=== PATIENT | female | born 1985 | race Caucasian/White ===

== ENCOUNTER → 2016-07-16 | Outpatient (CLI) | payer OTHER | END | disposition home or self-care (01) | LOC: LABWHC1 14:45 | PROVIDERS: ATTEND Obstetrics & Gynecology | DX: Z34.90 Encounter for supervision of normal pregnancy, unspecified, unspecified trimester (principal); Z3A.00 Weeks of gestation of pregnancy not specified | CPT/HCPCS: 36415; 84702 ==

== ENCOUNTER → 2016-07-30 | Outpatient (CLI) | payer OTHER ==
--- NOTE | 2016-07-30 22:24 | US ---
EXAMINATION TYPE: US pelvic complete DATE OF EXAM: 07/30/2016 3:41 PM COMPARISON: NONE CLINICAL HISTORY: 31-year-old female Pelvic Pain R10.2. LEFT adnexal pain, has IUD TECHNIQUE: Transabdominal (TA) Date of LMP: Patient unsure; pt has IUD with irregular cycles FINDINGS: Uterus: Anteverted measuring 8.7 x 4.0 x 5.4 cm Endometrial Stripe: 0.7 cm, within normal limits. An IUD is seen appropriately situated along the andrew rine cavity. Right Ovary: 3.7 x 2.4 x 2.6 cm with small follicular change. Left Ovary: 3.8 x 2.5 x 2.6 cm with small follicular change. No evident adnexal abnormality or cul-de-sac free fluid. IMPRESSION: IUD appears appropriately situated along the uterine cavity. Small follicles in both ovaries.
== END | disposition home or self-care (01) ==
LOC: RADUSWWP 14:38
PROVIDERS: ATTEND Obstetrics & Gynecology
DX: R10.2 Pelvic and perineal pain (principal); Z97.5 Presence of (intrauterine) contraceptive device
CPT/HCPCS: 76856

== ENCOUNTER 2016-10-11 13:36 | Emergency (ER) | payer OTHER ==
[2016-10-11 13:45] VITALS: BP 129/75; PULSE 108; RESP 20; TEMP 97.8
[2016-10-11] MEDS ORDERED: ONDANSETRON ODT 4 MG TAB PO STA (13:53)
--- NOTE | 2016-10-11 13:58 | ED ---
General Adult HPI - General Chief complaint: Recheck/Abnormal Lab/Rx Stated complaint: Drug Withdrawal Time Seen by Provider: 10/11/16 13:48 Source: patient, family, RN notes reviewed Mode of arrival: wheelchair Limitations: no limitations - History of Present Illness Initial comments: Patient is a pleasant 31-year-old female presenting with family with concerns for drug withdrawal. Patient has been on pain medications, Vicodin and Percocet for the past year or 2. Patient does have chronic back pain. Patient stopped taking medication yesterday and feels like she is withdrawing. Patient was cramping all over. Patient has nausea and vomiting, mostly dry heaves. No fevers. No history of similar problems previously. Patient does not want to be in pain medications anymore. - Related Data Previous Rx's Medication Instructions Recorded HYDROcodone/APAP 5-325MG [[place] 5] 1 each PO Q4HR PRN #30 tab 07/01/14 Ondansetron Odt [Zofran Odt] 4 mg PO Q6HR PRN #15 tab 10/11/16 cloNIDine HCL [Catapres] 0.1 mg PO BID #8 tab 10/11/16 Allergies Allergy/AdvReac Type Severity Reaction Status Date / Time adhesive Allergy Swelling Verified 10/11/16 13:44 codeine Allergy Rash/Hives Verified 10/11/16 13:44 Review of Systems ROS Statement: Those systems with pertinent positive or pertinent negative responses have been documented in the HPI. ROS Other: All systems not noted in ROS Statement are negative. Constitutional: Denies: fever Eyes: Denies: eye pain ENT: Denies: ear pain Respiratory: Denies: cough Cardiovascular: Denies: chest pain Endocrine: Reports: fatigue Gastrointestinal: Reports: abdominal pain, nausea, vomiting Genitourinary: Denies: dysuria Musculoskeletal: Reports: back pain (Chronic and unchanged) Skin: Denies: rash Neurological: Denies: confusion Past Medical History Past Medical History: Asthma Additional Past Medical History / Comment(s): endomitriosis, History of Any Multi-Drug Resistant Organisms: None Reported Past Surgical History: Hernia Repair, Orthopedic Surgery Additional Past Surgical History / Comment(s): right finger amputation, bilateral knee surgeries, 2 cervical LEEP procedures Past Anesthesia/Blood Transfusion Reactions: No Reported Reaction Past Psychological History: Anxiety Smoking Status: Current every day smoker Past Alcohol Use History: None Reported Past Drug Use History: Opiates - Past Family History Father Family Medical History: Coronary Artery Disease (CAD) General Exam Limitations: no limitations General appearance: alert, in no apparent distress Head exam: Present: atraumatic Eye exam: Present: normal appearance, PERRL ENT exam: Present: normal oropharynx Neck exam: Present: normal inspection Respiratory exam: Present: normal lung sounds bilaterally Cardiovascular Exam: Present: tachycardia GI/Abdominal exam: Present: soft. Absent: distended, tenderness Extremities exam: Present: normal inspection Neurological exam: Present: alert Psychiatric exam: Present: anxious Skin exam: Present: normal color Course Vital Signs 10/11/16 13:41 Temperature 97.8 F Pulse Rate 108 H Respiratory 20 Rate Blood Pressure 129/75 O2 Sat by Pulse 99 Oximetry Disposition Clinical Impression: Opiate withdrawal Disposition: HOME SELF-CARE Condition: Stable Instructions: Opioid Withdrawal (ED) Additional Instructions: Please follow-up with primary care physician in the next day or 2 for recheck. Please also follow-up with rehab, phone number list has been provided. Consider [facility]. Return for uncontrolled vomiting, fevers, worsening or changing symptoms or other concerns. Prescriptions: cloNIDine HCL [Catapres] 0.1 mg PO BID #8 tab Ondansetron Odt [Zofran Odt] 4 mg PO Q6HR PRN #15 tab PRN Reason: Nausea Referrals: Katie Joshua MD [STAFF PHYSICIAN] - 1-2 days Inge Larose MD [STAFF PHYSICIAN] - 1-2 days Time of Disposition: 13:58
== END 2016-10-11 14:10 | disposition home or self-care (01) ==
LOC: EC 13:36
DX: F11.23 Opioid dependence with withdrawal (principal); F17.200 Nicotine dependence, unspecified, uncomplicated; Z88.5 Allergy status to narcotic agent; Z91.048 Other nonmedicinal substance allergy status
CPT/HCPCS: 99283

== ENCOUNTER → 2017-06-29 | Outpatient (CLI) | payer OTHER ==
--- NOTE | 2017-06-29 13:51 | US ---
EXAMINATION TYPE: US pelvic complete DATE OF EXAM: 06/29/2017 COMPARISON: Pelvic ultrasound July 30, 2016. CLINICAL HISTORY: R10.2 pelvic Pain. TECHNIQUE: Transabdominal (TA). Date of LMP: 06/28/2017 EXAM MEASUREMENTS: Uterus: 7.7 x 4.3 x 4.9 cm Endometrial Stripe: 1.0 cm Right Ovary: 4.6 x 2.0 x 2.1 cm Left Ovary: 2.7 x 2.9 x 2.4 cm 1. Uterus: Anteverted wnl 2. Endometrium: wnl, IUD noted in place 3. Right Ovary: wnl 4. Left Ovary: wnl 5. Bilateral Adnexa: wnl 6. Posterior cul-de-sac: no free fluid Marked anteverted uterus is identified currently. Central shadowing linear hypoechoic structure consi stent with IUD is redemonstrated. Uterus is overall markedly heterogeneous. No free fluid is seen in pelvis. Both ovaries are identified and felt within normal limits. No suspicious adnexal lesions are seen. IMPRESSION: Unremarkable study. No significant change from prior.
--- NOTE | 2017-06-29 14:01 | USB ---
Reason for exam: clinical finding. History: Family history of breast cancer in maternal grandmother. Indicated problem(s): lump or thickening in the right breast. Physical Findings: Nurse Summary: 1-1.5cm thickening, movable (nurse dw). US Breast RT Right breast ultrasound includes all four quadrants, the retroareolar region and axilla. Finding demonstrates no cystic or solid lesion seen. These results were verbally communicated with the patient and result sheet given to the patient on 06/29/17. ASSESSMENT: Negative, BI-RAD 1 RECOMMENDATION: Clinical management of the right breast. Manage patient on a clinical basis.
== END | disposition home or self-care (01) ==
LOC: RADUSWWP 13:04
PROVIDERS: ATTEND Obstetrics & Gynecology
DX: R10.2 Pelvic and perineal pain (principal); N60.01 Solitary cyst of right breast
CPT/HCPCS: 76856

== ENCOUNTER 2017-09-08 16:38 | Emergency (ER) | payer BC, OTHER ==
[2017-09-08 16:52] VITALS: RESP 18; TEMP 98.6
[2017-09-08] MEDS ORDERED: SODIUM CHLORIDE 0.9% 1,000 ML IV STA (17:32)
--- NOTE | 2017-09-08 17:45 | ED ---
General Adult HPI - General Chief complaint: Abdominal Pain Stated complaint: ABDOMINAL AND KIDNEY PAIN, FEVER Time Seen by Provider: 09/08/17 17:15 Source: patient, RN notes reviewed Mode of arrival: ambulatory Limitations: no limitations - History of Present Illness Initial comments: Patient is a 32-year-old female significant past medical history for endometriosis, presenting to the emergency room today with a chief complaint of abdominal pain over the last 3 days. Patient states that pain is different than her typical endometriosis. Located middle of the abdomen. States cramping. She does admit that she went to urgent care and was sent here to the emergency room because of these symptoms. She states she's had some fever also had some congestion. She states her main worry was about her abdominal pain. Patient does admit that she had diarrhea the last 2 days. No signs of blood. No other complaints at this time. Patient denies any recent fever, chills, shortness of breath, chest pain, numbness or tingling, dysuria or hematuria, constipation, headaches or visual changes, or any other complaints. - Related Data Home Medications Medication Instructions Recorded Confirmed Acyclovir [Zovirax] 400 mg PO BID 09/08/17 09/08/17 Previous Rx's Medication Instructions Recorded Ondansetron Odt [Zofran ODT] 4 mg PO Q8HR PRN #20 tab 09/08/17 Allergies Allergy/AdvReac Type Severity Reaction Status Date / Time adhesive Allergy Swelling Verified 09/08/17 17:18 codeine Allergy Rash/Hives Verified 09/08/17 17:18 Review of Systems ROS Statement: Those systems with pertinent positive or pertinent negative responses have been documented in the HPI. ROS Other: All systems not noted in ROS Statement are negative. Past Medical History Past Medical History: Asthma Additional Past Medical History / Comment(s): endomitriosis, History of Any Multi-Drug Resistant Organisms: None Reported Past Surgical History: Hernia Repair, Orthopedic Surgery Additional Past Surgical History / Comment(s): right finger amputation, bilateral knee surgeries, 2 cervical LEEP procedures Past Anesthesia/Blood Transfusion Reactions: No Reported Reaction Past Psychological History: Anxiety Smoking Status: Current every day smoker Past Alcohol Use History: None Reported Past Drug Use History: None Reported - Past Family History Father Family Medical History: Coronary Artery Disease (CAD) General Exam - General Exam Comments Initial Comments: General: The patient is awake and alert, in no distress, and does not appear acutely ill. Eye: Pupils are equal, round and reactive to light, extra-ocular movements are intact. No nystagmus. There is normal conjunctiva bilaterally. No signs of icterus. Ears, nose, mouth and throat: There are moist mucous membranes and no oral lesions. Neck: The neck is supple, there is no tenderness or JVD. Cardiovascular: There is a regular rate and rhythm. No murmur, rub or gallop is appreciated. Respiratory: Lungs are clear to auscultation, respirations are non-labored, breath sounds are equal. No wheezes, stridor, rales, or rhonchi. Gastrointestinal: Abdomen soft on palpation. Mild tenderness suprapubic over the bladder. Mild left-sided CVA tenderness. No rebound, or guarding. Musculoskeletal: Normal ROM, no tenderness. Strength 5/5. Sensation intact. Pulses equal bilaterally 2+. Neurological: A&O x 3. CN II-XII intact, There are no obvious motor or sensory deficits. Coordination appears grossly intact. Speech is normal. Skin: Skin is warm and dry and no rashes or lesions are noted. Psychiatric: Cooperative, appropriate mood & affect, normal judgment. Limitations: no limitations Course Vital Signs 09/08/17 16:49 Temperature 98.6 F Pulse Rate 77 Respiratory 18 Rate Blood Pressure 127/78 O2 Sat by Pulse 99 Oximetry Medical Decision Making - Medical Decision Making Patient reexamined at this time shows no signs of distress. Her labs been reviewed. Vitals are stable. No fever here in emergency room. No elevated white count. Patient resting comfortably in soft nontender. Physical discharged home to follow-up family doctor the next 2 days. Patient nausea medication for symptoms. Advised return symptoms increase worsen or for concerns. states Understanding and is in - Lab Data Result diagrams: 09/08/17 17:56 09/08/17 17:56 Lab Results 09/08/17 09/08/17 09/08/17 Range/Units 17:56 17:56 17:56 WBC 9.2 (3.8-10.6) k/uL RBC 4.36 (3.80-5.40) m/uL Hgb 14.3 (11.4-16.0) gm/dL Hct 42.8 (34.0-46.0) % MCV 98.3 (80.0-100.0) fL MCH 32.7 (25.0-35.0) pg MCHC 33.3 (31.0-37.0) g/dL RDW 13.0 (11.5-15.5) % Plt Count 244 (150-450) k/uL Neutrophils % 66 % Lymphocytes % 26 % Monocytes % 5 % Eosinophils % 1 % Basophils % 1 % Neutrophils # 6.1 (1.3-7.7) k/uL Lymphocytes # 2.4 (1.0-4.8) k/uL Monocytes # 0.4 (0-1.0) k/uL Eosinophils # 0.1 (0-0.7) k/uL Basophils # 0.0 (0-0.2) k/uL Sodium 141 (137-145) mmol/L Potassium 3.9 (3.5-5.1) mmol/L Chloride 107 (98-107) mmol/L Carbon Dioxide 21 L (22-30) mmol/L Anion Gap 13 mmol/L BUN 10 (7-17) mg/dL Creatinine 0.70 (0.52-1.04) mg/dL Est GFR (CKD-EPI)AfAm >90 (>60 ml/min/1.73 sqM) Est GFR (CKD-EPI)NonAf >90 (>60 ml/min/1.73 sqM) Glucose 91 (74-99) mg/dL Calcium 9.6 (8.4-10.2) mg/dL Total Bilirubin 0.3 (0.2-1.3) mg/dL AST 21 (14-36) U/L ALT 29 (9-52) U/L Alkaline Phosphatase 62 (38-126) U/L Total Protein 7.2 (6.3-8.2) g/dL Albumin 4.7 (3.5-5.0) g/dL Amylase 91 (30-110) U/L Lipase 162 (23-300) U/L Urine Color Urine Appearance (Clear) Urine pH (5.0-8.0) Ur Specific [place] (1.001-1.035) Urine Protein (Negative) Urine Glucose (UA) (Negative) Urine Ketones (Negative) Urine Blood (Negative) Urine Nitrite (Negative) Urine Bilirubin (Negative) Urine Urobilinogen (<2.0) mg/dL Ur Leukocyte Esterase (Negative) Urine RBC (0-5) /hpf Urine WBC (0-5) /hpf Ur Squamous Epith Cells (0-4) /hpf Urine Mucus (None) /hpf Urine HCG, Qual Not Detected (Not Detectd) 09/08/17 Range/Units 17:56 WBC (3.8-10.6) k/uL RBC (3.80-5.40) m/uL Hgb (11.4-16.0) gm/dL Hct (34.0-46.0) % MCV (80.0-100.0) fL MCH (25.0-35.0) pg MCHC (31.0-37.0) g/dL RDW (11.5-15.5) % Plt Count (150-450) k/uL Neutrophils % % Lymphocytes % % Monocytes % % Eosinophils % % Basophils % % Neutrophils # (1.3-7.7) k/uL Lymphocytes # (1.0-4.8) k/uL Monocytes # (0-1.0) k/uL Eosinophils # (0-0.7) k/uL Basophils # (0-0.2) k/uL Sodium (137-145) mmol/L Potassium (3.5-5.1) mmol/L Chloride (98-107) mmol/L Carbon Dioxide (22-30) mmol/L Anion Gap mmol/L BUN (7-17) mg/dL Creatinine (0.52-1.04) mg/dL Est GFR (CKD-EPI)AfAm (>60 ml/min/1.73 sqM) Est GFR (CKD-EPI)NonAf (>60 ml/min/1.73 sqM) Glucose (74-99) mg/dL Calcium (8.4-10.2) mg/dL Total Bilirubin (0.2-1.3) mg/dL AST (14-36) U/L ALT (9-52) U/L Alkaline Phosphatase (38-126) U/L Total Protein (6.3-8.2) g/dL Albumin (3.5-5.0) g/dL Amylase (30-110) U/L Lipase (23-300) U/L Urine Color Yellow Urine Appearance Clear (Clear) Urine pH 6.5 (5.0-8.0) Ur Specific [place] 1.019 (1.001-1.035) Urine Protein Negative (Negative) Urine Glucose (UA) Negative (Negative) Urine Ketones Negative (Negative) Urine Blood Small H (Negative) Urine Nitrite Negative (Negative) Urine Bilirubin Negative (Negative) Urine Urobilinogen <2.0 (<2.0) mg/dL Ur Leukocyte Esterase Negative (Negative) Urine RBC 9 H (0-5) /hpf Urine WBC 1 (0-5) /hpf Ur Squamous Epith Cells 1 (0-4) /hpf Urine Mucus Rare H (None) /hpf Urine HCG, Qual (Not Detectd) Disposition Clinical Impression: Abdominal pain Disposition: HOME SELF-CARE Condition: Good Instructions: Abdominal Pain (ED) Additional Instructions: Please use medication as discussed. Please follow-up with family doctor in the next 2 days of symptoms have not improved. Please return to emergency room if the symptoms increase or worsen or for any other concerns. Prescriptions: Ondansetron Odt [Zofran ODT] 4 mg PO Q8HR PRN #20 tab PRN Reason: Nausea Is patient prescribed a controlled substance at d/c from ED?: No Referrals: None,Stated [Primary Care Provider] - 1-2 days Inge Laorse MD [STAFF PHYSICIAN] - 1-2 days Time of Disposition: 18:57
[2017-09-08 18:09] LABS: Basophils % (A) 1 %; Eosinophils # (A) 0.1 k/uL (0-0.7); Eosinophils % (A) 1 %; HCT 42.8 % (34.0-46.0); HGB 14.3 gm/dL (11.4-16.0); Lymphocytes # (A) 2.4 k/uL (1.0-4.8); Lymphocytes % (A) 26 %; MCH 32.7 pg (25.0-35.0); MCHC 33.3 g/dL (31.0-37.0); MCV 98.3 fL (80.0-100.0); Mean Platelet Volume 6.6; Monocytes # (A) 0.4 k/uL (0-1.0); Monocytes % (A) 5 %; Neutrophils # (A) 6.1 k/uL (1.3-7.7); Neutrophils % (A) 66 %; Platelet Count 244 k/uL (150-450); RBC 4.36 m/uL (3.80-5.40); WBC 9.2 k/uL (3.8-10.6)
[2017-09-08 18:12] LABS: Appearance,Urine Clear (Clear); Bilirubin,Urine Negative (Negative); Blood,Urine Small (Negative); Color,Urine Yellow; Glucose,Urine (UA) Negative (Negative); Ketones,Urine Negative (Negative); Leukocyte Esterase,Urine Negative (Negative); Mucus,Urine Rare /hpf; Nitrite,Urine Negative (Negative); PH, Urine 6.5 (5.0-8.0); Protein,Urine Negative (Negative); RBC,Urine 9 /hpf (0-5); Specific Gravity,Urine 1.019 (1.001-1.035); Squamous Epithelial Cell,Urine 1 /hpf (0-4); Urobilinogen,Urine <2.0 mg/dL (<2.0); WBC,Urine 1 /hpf (0-5)
[2017-09-08 18:19] LABS: ALT 29 U/L (9-52); AST 21 U/L (14-36); Albumin 4.7 g/dL (3.5-5.0); Alkaline Phosphatase 62 U/L (38-126); Amylase 91 U/L (30-110); Anion Gap 13 mmol/L; Blood Urea Nitrogen 10 mg/dL (7-17); Calcium 9.6 mg/dL (8.4-10.2); Carbon Dioxide 21 mmol/L (22-30); Chloride 107 mmol/L (98-107); Glucose 91 mg/dL (74-99); Lipase 162 U/L (23-300); Potassium 3.9 mmol/L (3.5-5.1); Sodium 141 mmol/L (137-145); Total Bilirubin 0.3 mg/dL (0.2-1.3); Total Protein 7.2 g/dL (6.3-8.2)
[2017-09-08 19:26] VITALS: BP 137/91; PULSE 72
--- NOTE | 2017-09-09 09:29 | XR ---
Abdomen HISTORY: Pain Frontal view of the abdomen on 2 images correlated to prior examination dated 10/03/2009 Lung bases are clear. There is no evident bowel obstruction or pneumoperitoneum. Bone mineralization is normal. Intrauterine contraceptive device is present within the pelvis. IMPRESSION: Foreign body. No evident bowel obstruction.
== END 2017-09-08 19:27 | disposition home or self-care (01) ==
LOC: EC 16:38
DX: R10.9 Unspecified abdominal pain (principal); R50.9 Fever, unspecified; R09.89 Other specified symptoms and signs involving the circulatory and respiratory systems; F17.200 Nicotine dependence, unspecified, uncomplicated; Z88.5 Allergy status to narcotic agent; Z91.09 Other allergy status, other than to drugs and biological substances; Z79.899 Other long term (current) drug therapy
CPT/HCPCS: 36415; 74018; 80053; 81001; 81025; 82150; 83690; 85025; 87077; 87086; 87186; 96360; 99284

== ENCOUNTER 2017-11-13 17:04 | Emergency (ER) | payer BC, OTHER ==
[2017-11-13] MEDS ORDERED: KETOROLAC 30 MG/ML 1 ML VIAL IVP STA (17:31)
[2017-11-13] MEDS ORDERED: SODIUM CHLORIDE 0.9% 1,000 ML IV STA (17:31)
--- NOTE | 2017-11-13 17:37 | ED ---
Abdominal Pain HPI - General Chief Complaint: Abdominal Pain Stated Complaint: ABDOMINAL PAIN Time Seen by Provider: 11/13/17 17:20 Source: patient Mode of arrival: ambulatory Limitations: no limitations - History of Present Illness Initial Comments: 32-year-old female patient with past medical history significant for endometriosis, fibromyalgia, and scoliosis presents to the emergency department today for complaints of vaginal bleeding, abdominal pain, and increased low back pain. Patient states she had her Mirena IUD removed approximately 4 weeks ago and states that she has been having bleeding since. Patient states it started as a normal period, then progressed into heavier vaginal bleeding. Patient states that she did soak through a pad in an hour just prior to arrival. States she has had some small clots. Patient states that today she has been feeling fatigued, lightheaded, and weak. Patient states that she does have an appointment with an LOAN SUPERVISOR and Marko Casarez on December 15 for her endometriosis. She usually follows with Dr. Campa. Patient denies any dysuria , urinary frequency, urinary urgency. She reports subjective fevers but has not taken her temperature. Patient states there is a chance she could be . Patient denies any recent rash, shortness breath, chest pain, numbness , tingling, dizziness, weakness, hematuria, dysuria, urinary urgency, urinary frequency, or any other complaints. - Related Data Home Medications Medication Instructions Recorded Confirmed Acyclovir [Zovirax] 400 mg PO BID 09/08/17 09/08/17 Previous Rx's Medication Instructions Recorded Ondansetron Odt [Zofran ODT] 4 mg PO Q8HR PRN #20 tab 09/08/17 Allergies Allergy/AdvReac Type Severity Reaction Status Date / Time adhesive Allergy Swelling Verified 09/08/17 17:18 codeine Allergy Rash/Hives Verified 09/08/17 17:18 Review of Systems ROS Statement: Those systems with pertinent positive or pertinent negative responses have been documented in the HPI. ROS Other: All systems not noted in ROS Statement are negative. Past Medical History Past Medical History: Asthma Additional Past Medical History / Comment(s): endomitriosis, History of Any Multi-Drug Resistant Organisms: None Reported Past Surgical History: Hernia Repair, Orthopedic Surgery Additional Past Surgical History / Comment(s): right finger amputation, bilateral knee surgeries, 2 cervical LEEP procedures Past Anesthesia/Blood Transfusion Reactions: No Reported Reaction Past Psychological History: Anxiety Smoking Status: Current every day smoker Past Alcohol Use History: None Reported Past Drug Use History: None Reported - Past Family History Father Family Medical History: Coronary Artery Disease (CAD) General Exam Limitations: no limitations General appearance: alert, in no apparent distress, other (This is a well- developed, well-nourished adult female patient in no acute distress. Vital signs upon presentation are temperature 99.1F, pulse 101, respirations 20, blood pressure 132/94, pulse ox 99% on room air.) Eye exam: Present: normal appearance, PERRL, EOMI. Absent: scleral icterus, conjunctival injection, periorbital swelling ENT exam: Present: normal exam, normal oropharynx, mucous membranes moist Respiratory exam: Present: normal lung sounds bilaterally. Absent: respiratory distress, wheezes, rales, rhonchi, stridor Cardiovascular Exam: Present: regular rate, normal rhythm, normal heart sounds. Absent: systolic murmur, diastolic murmur, rubs, gallop, clicks GI/Abdominal exam: Present: soft, tenderness (Generalized), normal bowel sounds. Absent: distended, guarding, rebound, rigid Back exam: Present: normal inspection, CVA tenderness (R), CVA tenderness (L) Neurological exam: Present: alert, oriented X3, CN II-XII intact Psychiatric exam: Present: normal affect, normal mood Skin exam: Present: warm, dry, intact, normal color. Absent: rash Course Vital Signs 11/13/17 11/13/17 17:17 20:45 Temperature 99.1 F 97 F L Pulse Rate 101 H 78 Respiratory 20 18 Rate Blood Pressure 132/94 132/71 O2 Sat by Pulse 99 98 Oximetry Medical Decision Making - Medical Decision Making 32-year-old female patient presented to the emergency department today for evaluation of abdominal pain and vaginal bleeding. Patient with vaginal bleeding have been going on for the last month. States is getting heavier. Patient is also complaining of generalized abdominal pain and tenderness. Patient states that the pain started prior to having her IUD removed. Labs reviewed and are unremarkable. Transvaginal ultrasound was obtained and showed no evidence of ovarian torsion and no other abnormalities. I did discuss findings and results with the patient, states that the pain is only getting worse and not getting any better she is requesting computed tomography scan of the abdomen and pelvis. I did advise against this informing her that her labs were unremarkable and the ultrasound showed no abnormalities. Patient became quite upset stating that her pain is only getting worse and she was very concerned, we did perform the CT of the abdomen and pelvis which showed a possible involuting ovarian cyst on the left side but no other abnormalities to account for the patient's pain. I did inform patient of these results. She will be discharged home to follow up with GI specialist for possible upper and lower GI endoscopy. She is instructed to follow-up with her LOAN SUPERVISOR as she has planned and to call for a sooner appointment. Return parameters were discussed in detail. She verbalizes understanding and agrees with this plan. - Lab Data Result diagrams: 11/13/17 17:41 11/13/17 17:41 Lab Results 11/13/17 11/13/17 11/13/17 Range/Units 17:41 17:41 17:41 WBC 9.5 (3.8-10.6) k/uL RBC 4.38 (3.80-5.40) m/uL Hgb 14.1 (11.4-16.0) gm/dL Hct 42.3 (34.0-46.0) % MCV 96.5 (80.0-100.0) fL MCH 32.2 (25.0-35.0) pg MCHC 33.3 (31.0-37.0) g/dL RDW 12.4 (11.5-15.5) % Plt Count 270 (150-450) k/uL Neutrophils % 54 % Lymphocytes % 38 % Monocytes % 5 % Eosinophils % 2 % Basophils % 1 % Neutrophils # 5.1 (1.3-7.7) k/uL Lymphocytes # 3.6 (1.0-4.8) k/uL Monocytes # 0.4 (0-1.0) k/uL Eosinophils # 0.1 (0-0.7) k/uL Basophils # 0.1 (0-0.2) k/uL Sodium 140 (137-145) mmol/L Potassium 3.5 (3.5-5.1) mmol/L Chloride 107 (98-107) mmol/L Carbon Dioxide 20 L (22-30) mmol/L Anion Gap 13 mmol/L BUN 10 (7-17) mg/dL Creatinine 0.76 (0.52-1.04) mg/dL Est GFR (CKD-EPI)AfAm >90 (>60 ml/min/1.73 sqM) Est GFR (CKD-EPI)NonAf >90 (>60 ml/min/1.73 sqM) Glucose 101 H (74-99) mg/dL Calcium 9.5 (8.4-10.2) mg/dL Total Bilirubin 0.6 (0.2-1.3) mg/dL AST 20 (14-36) U/L ALT 20 (9-52) U/L Alkaline Phosphatase 56 (38-126) U/L Total Protein 7.4 (6.3-8.2) g/dL Albumin 4.6 (3.5-5.0) g/dL Amylase 91 (30-110) U/L Lipase 164 (23-300) U/L Urine Color Urine Appearance (Clear) Urine pH (5.0-8.0) Ur Specific [place] (1.001-1.035) Urine Protein (Negative) Urine Glucose (UA) (Negative) Urine Ketones (Negative) Urine Blood (Negative) Urine Nitrite (Negative) Urine Bilirubin (Negative) Urine Urobilinogen (<2.0) mg/dL Ur Leukocyte Esterase (Negative) Urine RBC (0-5) /hpf Urine WBC (0-5) /hpf Ur Squamous Epith Cells (0-4) /hpf Urine Mucus (None) /hpf Urine HCG, Qual Not Detected (Not Detectd) 11/13/17 Range/Units 17:41 WBC (3.8-10.6) k/uL RBC (3.80-5.40) m/uL Hgb (11.4-16.0) gm/dL Hct (34.0-46.0) % MCV (80.0-100.0) fL MCH (25.0-35.0) pg MCHC (31.0-37.0) g/dL RDW (11.5-15.5) % Plt Count (150-450) k/uL Neutrophils % % Lymphocytes % % Monocytes % % Eosinophils % % Basophils % % Neutrophils # (1.3-7.7) k/uL Lymphocytes # (1.0-4.8) k/uL Monocytes # (0-1.0) k/uL Eosinophils # (0-0.7) k/uL Basophils # (0-0.2) k/uL Sodium (137-145) mmol/L Potassium (3.5-5.1) mmol/L Chloride (98-107) mmol/L Carbon Dioxide (22-30) mmol/L Anion Gap mmol/L BUN (7-17) mg/dL Creatinine (0.52-1.04) mg/dL Est GFR (CKD-EPI)AfAm (>60 ml/min/1.73 sqM) Est GFR (CKD-EPI)NonAf (>60 ml/min/1.73 sqM) Glucose (74-99) mg/dL Calcium (8.4-10.2) mg/dL Total Bilirubin (0.2-1.3) mg/dL AST (14-36) U/L ALT (9-52) U/L Alkaline Phosphatase (38-126) U/L Total Protein (6.3-8.2) g/dL Albumin (3.5-5.0) g/dL Amylase (30-110) U/L Lipase (23-300) U/L Urine Color Light Yellow Urine Appearance Clear (Clear) Urine pH 5.5 (5.0-8.0) Ur Specific [place] 1.007 (1.001-1.035) Urine Protein Negative (Negative) Urine Glucose (UA) Negative (Negative) Urine Ketones Negative (Negative) Urine Blood Small H (Negative) Urine Nitrite Negative (Negative) Urine Bilirubin Negative (Negative) Urine Urobilinogen <2.0 (<2.0) mg/dL Ur Leukocyte Esterase Negative (Negative) Urine RBC 1 (0-5) /hpf Urine WBC 1 (0-5) /hpf Ur Squamous Epith Cells 1 (0-4) /hpf Urine Mucus Rare H (None) /hpf Urine HCG, Qual (Not Detectd) - Radiology Data Radiology results: report reviewed, image reviewed CT abdomen and pelvis with contrast was obtained. Report was reviewed in its entirety. Impression by Dr. Carpio shows peripherally enhancing 1.5 cm cystic lesion in the left ovary suggestive of a recently ruptured follicle. Trace cul- de-sac free fluid likely physiologic. Otherwise, no acute inflammatory process identified in the abdomen or pelvis to explain the patient's symptoms. Transvaginal ultrasound with Doppler was obtained. Report was reviewed in its entirety. Impression by Dr. Ahmed shows no abnormal fluid within the uterine cavity. Endometrial stripe measures 4 mm. Normal size ovaries. Arterial waveforms were done 100 bilaterally. Unable to obtain venous waveforms probably due to technical factors. The overall morphology argues against ovarian torsion. No pelvic free fluid. Disposition Clinical Impression: Abdominal pain, Dysfunctional uterine bleeding Disposition: HOME SELF-CARE Condition: Good Instructions: Dysfunctional Uterine Bleeding (ED), Abdominal Pain (ED) Additional Instructions: Call your LOAN SUPERVISOR and see if you can get a sooner appointment. Follow up with GI specialist for further evaluation and possible upper and lower GI endoscopy. Also follow up with her primary care physician for further evaluation 1-2 days. Return here immediately for any new, worsening, or concerning symptoms per Is patient prescribed a controlled substance at d/c from ED?: No Referrals: Inge Larose MD [STAFF PHYSICIAN] - 1-2 days Henny Coyle MD [STAFF PHYSICIAN] - 1-2 days Time of Disposition: 20:38
[2017-11-13 17:58] LABS: Basophils # (A) 0.1 k/uL (0-0.2); Basophils % (A) 1 %; Eosinophils # (A) 0.1 k/uL (0-0.7); Eosinophils % (A) 2 %; HCT 42.3 % (34.0-46.0); HGB 14.1 gm/dL (11.4-16.0); Lymphocytes # (A) 3.6 k/uL (1.0-4.8); Lymphocytes % (A) 38 %; MCH 32.2 pg (25.0-35.0); MCHC 33.3 g/dL (31.0-37.0); MCV 96.5 fL (80.0-100.0); Mean Platelet Volume 6.5; Monocytes # (A) 0.4 k/uL (0-1.0); Monocytes % (A) 5 %; Neutrophils # (A) 5.1 k/uL (1.3-7.7); Neutrophils % (A) 54 %; Platelet Count 270 k/uL (150-450); RBC 4.38 m/uL (3.80-5.40); RDW 12.4 % (11.5-15.5); WBC 9.5 k/uL (3.8-10.6)
[2017-11-13 18:03] LABS: Appearance,Urine Clear (Clear); Bilirubin,Urine Negative (Negative); Blood,Urine Small (Negative); Color,Urine Light Yellow; Glucose,Urine (UA) Negative (Negative); Ketones,Urine Negative (Negative); Leukocyte Esterase,Urine Negative (Negative); Mucus,Urine Rare /hpf; Nitrite,Urine Negative (Negative); PH, Urine 5.5 (5.0-8.0); Protein,Urine Negative (Negative); RBC,Urine 1 /hpf (0-5); Specific Gravity,Urine 1.007 (1.001-1.035); Squamous Epithelial Cell,Urine 1 /hpf (0-4); Urobilinogen,Urine <2.0 mg/dL (<2.0); WBC,Urine 1 /hpf (0-5)
[2017-11-13 18:06] LABS: ALT 20 U/L (9-52); AST 20 U/L (14-36); Albumin 4.6 g/dL (3.5-5.0); Alkaline Phosphatase 56 U/L (38-126); Amylase 91 U/L (30-110); Anion Gap 13 mmol/L; Blood Urea Nitrogen 10 mg/dL (7-17); Calcium 9.5 mg/dL (8.4-10.2); Carbon Dioxide 20 mmol/L (22-30); Chloride 107 mmol/L (98-107); Glucose 101 mg/dL (74-99); Lipase 164 U/L (23-300); Potassium 3.5 mmol/L (3.5-5.1); Sodium 140 mmol/L (137-145); Total Bilirubin 0.6 mg/dL (0.2-1.3); Total Protein 7.4 g/dL (6.3-8.2)
--- NOTE | 2017-11-13 19:09 | US ---
EXAMINATION TYPE: US transvaginal DATE OF EXAM: 11/13/2017 COMPARISON: 06/29/2017 CLINICAL HISTORY: 31-year-old female Pain. Bleeding and pelvic pain since getting IUD taken out Aug t , last regular cycle was end september, history of endometriosis, 3, para 2, miscarriage 1 TECHNIQUE: Transvaginal ER exam. Date of LMP: September FINDINGS: EXAM MEASUREMENTS: Uterus: 8.4 x 3.8 x 5.6 cm Endometrial Stripe: 0.4 cm Right Ovary: 2.8 x 2.0 x 2.9 cm for volume of 8.5 mL. Left Ovary: 3.7 x 1.7 x 2.0 cm for a volume of 6.5 mL. 1. Uterus: anteverted, mildly heterogeneous . No abnormal fluid within the uterine cavity. 2. Endometrium: appears wnl 3. Right Ovary: wnl 4. Left Ovary: wnl Spectral, color and waveform doppler imaging shows good arterial flow within the ovaries; unable to obtain venous flow within the ovaries. 5. Bilateral Adnexa: wnl 6. Posterior cul-de-sac: wnl IMPRESSION: 1. No abnormal fluid within the uterine cavity. Endometrial stripe measures 4 mm. 2. Normal sized ovaries. Arterial waveforms were demonstrated bilaterally. Unable to obtain venous wa veforms probably due to technical factors. The overall morphology argues against ovarian torsion. 3. No pelvic free fluid.
--- NOTE | 2017-11-13 20:35 | CT ---
EXAMINATION TYPE: CT abdomen pelvis w con DATE OF EXAM: 11/13/2017 COMPARISON: 01/16/2011 HISTORY: 32-year-old female Left lower quadrant abdominal pain and back pain. TECHNIQUE: Contiguous axial scanning of the abdomen and pelvis following administration of 100 ml Iso evans 300 IV contrast. Delayed images through the kidneys and coronal/sagittal reconstructions perform ed. CT DLP: 444.5 mGycm Automated exposure control for dose reduction was used. FINDINGS: Heart normal size without pericardial effusion. Lung bases clear without pleural effusion. No focal liver lesion or biliary ductal dilatation. Portal venous system is patent. Gallbladder, adrenal glands, kidneys, spleen, and pancreas appear within normal limits. Ingested material within the stomach. No dilated small bowel, free fluid, or free air. Appendix not discretely visualized. No secondary findings of acute appendicitis. No significant stool burden. No pericolonic inflammatory change. Bladder nondistended. Uterus and ovaries are visualized. There are peripheral enhancing left ovary me asuring up to 1.5 cm with trace cul-de-sac free fluid. Tampon is in place. No pelvic lymphadenopathy. Bones: Degenerative disc disease at L5-S1. No osseous destructive process. IMPRESSION: 1. PERIPHERALLY ENHANCING 1.5 CM CYSTIC LESION IN THE LEFT OVARY SUGGESTIVE OF A RECENTLY RUPTURED FO LLICLE. TRACE CUL-DE-SAC FREE FLUID LIKELY PHYSIOLOGIC. 2. OTHERWISE, NO ACUTE INFLAMMATORY PROCESS IDENTIFIED IN THE ABDOMEN OR PELVIS TO EXPLAIN THE PATIEN T'S SYMPTOMS.
[2017-11-13 20:46] VITALS: BP 132/71; PULSE 78; RESP 18; TEMP 97
== END 2017-11-13 20:47 | disposition home or self-care (01) ==
LOC: EC 17:04
DX: N93.8 Other specified abnormal uterine and vaginal bleeding (principal); F17.200 Nicotine dependence, unspecified, uncomplicated; Z88.5 Allergy status to narcotic agent; Z91.048 Other nonmedicinal substance allergy status
CPT/HCPCS: 36415; 80053; 82150; 83690; 85025; 81001; 81025; 93976; 76830; 74177; 99284; 96374; 96361 ×2; J1885; Q9967

== ENCOUNTER → 2017-12-31 | Outpatient (CLI) | payer OTHER | END | disposition home or self-care (01) | LOC: LABWHC1 14:55 | PROVIDERS: ATTEND Obstetrics & Gynecology | DX: Z34.90 Encounter for supervision of normal pregnancy, unspecified, unspecified trimester (principal) | CPT/HCPCS: 36415; 84702 ==

== ENCOUNTER 2018-01-03 17:14 | Emergency (ER) | payer OTHER ==
[2018-01-03 17:23] VITALS: RESP 20; TEMP 98.7
--- NOTE | 2018-01-03 18:25 | ED ---
General Adult HPI - General Source: patient, RN notes reviewed Mode of arrival: wheelchair Limitations: no limitations <Jesus De Dios - Last Filed: 01/03/18 21:02> <Martin Champion - Last Filed: 01/03/18 21:09> - General Chief complaint: Vaginal Bleeding Stated complaint: & bleeding Time Seen by Provider: 01/03/18 18:04 - History of Present Illness Initial comments: 32-year-old female approximately 9 weeks with significant past medical history of endometriosis, fibromyalgia, asthma presents to the emergency department for a chief complaint of vaginal bleeding 2 hours. Patient states that she was at the store when she felt a sudden pain in her left lower abdomen and started to experience vaginal bleeding with clots. Patient states she has bled through one tampon since that time. She states she is currently still bleeding. Describes the pain in the left lower quadrant as a sharp intermittent pain and rates the pain at an 8 out of 10 when it is at its worse. Patient states she had hCG drawn 2 days ago and then again today ordered by her DIRECTOR OF STRATEGY & MOBILE. Patient states this was done as she has had at least one previous miscarriage before but has not had any bleeding or pain before 2 hours ago. Patient states she is taking a vitamin. Patient has no other complaints at this time including shortness of breath, chest pain, nausea or vomiting, headache, or visual changes. (Jesus De Dios) - Related Data Home Medications Medication Instructions Recorded Confirmed Albuterol Inhaler [Ventolin Hfa 1 - 2 puff INHALATION RT-Q6H PRN 01/03/18 Inhaler] [id number] [id number] 2 tab PO Q6HR PRN 01/03/18 01/03/18 [Excedrin] Pnv,Calcium 72/Iron/Folic Acid 1 tab PO DAILY 01/03/18 01/03/18 [ Plus Tablet] Allergies Allergy/AdvReac Type Severity Reaction Status Date / Time adhesive Allergy Swelling Verified 01/03/18 17:56 codeine Allergy Rash/Hives Verified 01/03/18 17:56 Review of Systems ROS Other: All systems not noted in ROS Statement are negative. <Jesus De Dios - Last Filed: 01/03/18 21:02> ROS Other: All systems not noted in ROS Statement are negative. <Martin Champion - Last Filed: 01/03/18 21:09> ROS Statement: Those systems with pertinent positive or pertinent negative responses have been documented in the HPI. Past Medical History Past Medical History: Asthma Additional Past Medical History / Comment(s): endomitriosis, History of Any Multi-Drug Resistant Organisms: None Reported Past Surgical History: Hernia Repair, Orthopedic Surgery Additional Past Surgical History / Comment(s): right finger amputation, bilateral knee surgeries, 2 cervical LEEP procedures Past Anesthesia/Blood Transfusion Reactions: No Reported Reaction Past Psychological History: Anxiety Smoking Status: Current every day smoker Past Alcohol Use History: None Reported Past Drug Use History: Marijuana - Past Family History Father Family Medical History: Coronary Artery Disease (CAD) <Jesus De Dios - Last Filed: 01/03/18 21:02> General Exam Limitations: no limitations General appearance: alert, in no apparent distress Head exam: Present: atraumatic, normocephalic, normal inspection Eye exam: Present: normal appearance, PERRL, EOMI. Absent: scleral icterus, conjunctival injection, periorbital swelling ENT exam: Present: normal exam, mucous membranes moist Neck exam: Present: normal inspection, full ROM. Absent: tenderness, meningismus, lymphadenopathy Respiratory exam: Present: normal lung sounds bilaterally. Absent: respiratory distress, wheezes, rales, rhonchi, stridor Cardiovascular Exam: Present: regular rate, normal rhythm, normal heart sounds. Absent: systolic murmur, diastolic murmur, rubs, gallop, clicks GI/Abdominal exam: Present: soft, tenderness (Left lower quadrant tenderness without guarding or rebound, no tenderness noted in the right lower quadrant, right upper quadrant, left upper quadrant. Negative Reid sign. Negative obturator sign.), normal bowel sounds. Absent: distended, guarding (, ), rebound, rigid External exam: Present: normal external exam Speculum exam: Present: vaginal bleeding. Absent: erythema, vaginal discharge, cervical discharge, foreign body By manual exam: Present: adnexal tenderness (Minimal left adnexal tenderness.), uterine tenderness (Minimal uterine tenderness.). Absent: cervical motion tenderness Neurological exam: Present: alert, oriented X3, CN II-XII intact Psychiatric exam: Present: normal affect, normal mood, anxious <Jesus De Dios - Last Filed: 01/03/18 21:02> Course <Jesus De Dios - Last Filed: 01/03/18 21:02> <Martin Champion - Last Filed: 01/03/18 21:09> Vital Signs 01/03/18 01/03/18 17:20 21:01 Temperature 98.7 F Pulse Rate 97 78 Respiratory 20 20 Rate Blood Pressure 124/80 108/78 O2 Sat by Pulse 99 98 Oximetry - Reevaluation(s) Reevaluation #1: 01/03/18 21:07 PA supervision: I personally do a [id number] evaluation the patient she has sudden onset of vaginal bleeding with a large amount of bleeding and she believes proximal a conception went to the toilet consistent with her prior miscarriage. She has some lower abdominal pain especially in the left. Beta- hCG levels were done tonight 947 today and 19th was 834. Ultrasound showed evidence of a corpus luteal cyst on the left ovary. I did discuss the case with Dr. Campa, patient will be discharged with repeat beta hCG 2 days follow- up the following day with Dr. Campa. If the patient's pain gets worse or persist she is to seek reevaluation prior to this. The current presentation consistent with a spontaneous and corpus luteal cyst. (Martin Champion) Medical Decision Making - Lab Data Result diagrams: 01/03/18 17:47 01/03/18 17:47 <Jesus De Dios - Last Filed: 01/03/18 21:02> - Lab Data Result diagrams: 01/03/18 17:47 01/03/18 17:47 <Martin Champion - Last Filed: 01/03/18 21:09> - Medical Decision Making 32-year-old female about 9 weeks presents to the emergency department for a chief complaint of vaginal bleeding 2 hours. Patient also complains of left lower quadrant pain rating it an 8 out of 10 at its worse. She describes as sharp and intermittent. Patient had 2 beta hCGs done but has not yet seen the DIRECTOR OF STRATEGY & MOBILE. This was ordered for Dr. Campa by his nurse apparently. On 12/31/2017 hCG was 834. 2 days later on 01/03/2018 hCG was 947. On exam patient does have mild left lower quadrant tenderness without rebound or guarding. Speculum exam reveals mild vaginal bleeding with a closed cervical os and mild left adnexal tenderness. Trans-vaginal ultrasound shows no intrauterine seen at this time. Complex area left ovary 2.3 x 2.0 x 1.7 cm likely corpus luteal cyst. Dr. Champion also saw the patient. He spoke with Dr. Campa who recommended repeat hCG in 2 days as well as appointments in 3 days. Patient will call him for this and was given his number. She was given pain medication here in the emergency department and is feeling somewhat better. On reevaluation, she is ready to go home and eating pizza. Discussed inability to completely rule out ectopic as well as possibility of miscarriage at this time which is why blood work is important to repeat in 2 days. Patient also aware that this is why she needs to return immediately if she has any worsening symptoms. (Jesus De Dios) - Lab Data Lab Results 01/03/18 01/03/18 01/03/18 Range/Units 15:45 17:47 17:47 WBC 10.4 (3.8-10.6) k/uL RBC 4.07 (3.80-5.40) m/uL Hgb 13.2 (11.4-16.0) gm/dL Hct 39.7 (34.0-46.0) % MCV 97.6 (80.0-100.0) fL MCH 32.5 (25.0-35.0) pg MCHC 33.3 (31.0-37.0) g/dL RDW 12.4 (11.5-15.5) % Plt Count 280 (150-450) k/uL Neutrophils % 59 % Lymphocytes % 33 % Monocytes % 4 % Eosinophils % 1 % Basophils % 1 % Neutrophils # 6.1 (1.3-7.7) k/uL Lymphocytes # 3.4 (1.0-4.8) k/uL Monocytes # 0.4 (0-1.0) k/uL Eosinophils # 0.1 (0-0.7) k/uL Basophils # 0.1 (0-0.2) k/uL Sodium (137-145) mmol/L Potassium (3.5-5.1) mmol/L Chloride (98-107) mmol/L Carbon Dioxide (22-30) mmol/L Anion Gap mmol/L BUN (7-17) mg/dL Creatinine (0.52-1.04) mg/dL Est GFR (CKD-EPI)AfAm (>60 ml/min/1.73 sqM) Est GFR (CKD-EPI)NonAf (>60 ml/min/1.73 sqM) Glucose (74-99) mg/dL Calcium (8.4-10.2) mg/dL Total Bilirubin (0.2-1.3) mg/dL AST (14-36) U/L ALT (9-52) U/L Alkaline Phosphatase (38-126) U/L Total Protein (6.3-8.2) g/dL Albumin (3.5-5.0) g/dL Urine Color Yellow Urine Appearance Clear (Clear) Urine pH 5.5 (5.0-8.0) Ur Specific [place] 1.011 (1.001-1.035) Urine Protein Negative (Negative) Urine Glucose (UA) Negative (Negative) Urine Ketones Negative (Negative) Urine Blood Small H (Negative) Urine Nitrite Negative (Negative) Urine Bilirubin Negative (Negative) Urine Urobilinogen <2.0 (<2.0) mg/dL Ur Leukocyte Esterase Negative (Negative) Urine RBC 1 (0-5) /hpf Urine WBC <1 (0-5) /hpf Ur Squamous Epith Cells <1 (0-4) /hpf Urine Mucus Rare H (None) /hpf Blood Type O Positive Blood Type Recheck No 01/03/18 Range/Units 17:47 WBC (3.8-10.6) k/uL RBC (3.80-5.40) m/uL Hgb (11.4-16.0) gm/dL Hct (34.0-46.0) % MCV (80.0-100.0) fL MCH (25.0-35.0) pg MCHC (31.0-37.0) g/dL RDW (11.5-15.5) % Plt Count (150-450) k/uL Neutrophils % % Lymphocytes % % Monocytes % % Eosinophils % % Basophils % % Neutrophils # (1.3-7.7) k/uL Lymphocytes # (1.0-4.8) k/uL Monocytes # (0-1.0) k/uL Eosinophils # (0-0.7) k/uL Basophils # (0-0.2) k/uL Sodium 139 (137-145) mmol/L Potassium 4.1 (3.5-5.1) mmol/L Chloride 106 (98-107) mmol/L Carbon Dioxide 24 (22-30) mmol/L Anion Gap 9 mmol/L BUN 12 (7-17) mg/dL Creatinine 0.63 (0.52-1.04) mg/dL Est GFR (CKD-EPI)AfAm >90 (>60 ml/min/1.73 sqM) Est GFR (CKD-EPI)NonAf >90 (>60 ml/min/1.73 sqM) Glucose 96 (74-99) mg/dL Calcium 9.6 (8.4-10.2) mg/dL Total Bilirubin 0.5 (0.2-1.3) mg/dL AST 26 (14-36) U/L ALT 29 (9-52) U/L Alkaline Phosphatase 46 (38-126) U/L Total Protein 7.3 (6.3-8.2) g/dL Albumin 4.3 (3.5-5.0) g/dL Urine Color Urine Appearance (Clear) Urine pH (5.0-8.0) Ur Specific [place] (1.001-1.035) Urine Protein (Negative) Urine Glucose (UA) (Negative) Urine Ketones (Negative) Urine Blood (Negative) Urine Nitrite (Negative) Urine Bilirubin (Negative) Urine Urobilinogen (<2.0) mg/dL Ur Leukocyte Esterase (Negative) Urine RBC (0-5) /hpf Urine WBC (0-5) /hpf Ur Squamous Epith Cells (0-4) /hpf Urine Mucus (None) /hpf Blood Type Blood Type Recheck Disposition Is patient prescribed a controlled substance at d/c from ED?: No Time of Disposition: 21:03 <Jesus De Dios - Last Filed: 01/03/18 21:02> <Martin Champion - Last Filed: 01/03/18 21:09> Clinical Impression: Threatened miscarriage Disposition: HOME SELF-CARE Condition: Good Additional Instructions: Please have blood work repeated on Wednesday. Please call Dr. Jenkins for an appointment on . Return immediately to the emergency department if you have any worsening symptoms. Referrals: Lukas Campa DO [Doctor of Osteopathic Medicine] - 1-2 days
[2018-01-03] MEDS ORDERED: SODIUM CHLORIDE 0.9% 1,000 ML IV ONE (18:29)
[2018-01-03 18:41] LABS: Basophils # (A) 0.1 k/uL (0-0.2); Basophils % (A) 1 %; Eosinophils # (A) 0.1 k/uL (0-0.7); Eosinophils % (A) 1 %; HCT 39.7 % (34.0-46.0); HGB 13.2 gm/dL (11.4-16.0); Lymphocytes # (A) 3.4 k/uL (1.0-4.8); Lymphocytes % (A) 33 %; MCH 32.5 pg (25.0-35.0); MCHC 33.3 g/dL (31.0-37.0); MCV 97.6 fL (80.0-100.0); Mean Platelet Volume 7.1; Monocytes # (A) 0.4 k/uL (0-1.0); Monocytes % (A) 4 %; Neutrophils # (A) 6.1 k/uL (1.3-7.7); Neutrophils % (A) 59 %; Platelet Count 280 k/uL (150-450); RBC 4.07 m/uL (3.80-5.40); RDW 12.4 % (11.5-15.5); WBC 10.4 k/uL (3.8-10.6)
[2018-01-03 18:45] LABS: ALT 29 U/L (9-52); AST 26 U/L (14-36); Albumin 4.3 g/dL (3.5-5.0); Alkaline Phosphatase 46 U/L (38-126); Anion Gap 9 mmol/L; Blood Urea Nitrogen 12 mg/dL (7-17); Calcium 9.6 mg/dL (8.4-10.2); Carbon Dioxide 24 mmol/L (22-30); Chloride 106 mmol/L (98-107); Glucose 96 mg/dL (74-99); Potassium 4.1 mmol/L (3.5-5.1); Sodium 139 mmol/L (137-145); Total Bilirubin 0.5 mg/dL (0.2-1.3); Total Protein 7.3 g/dL (6.3-8.2)
[2018-01-03 19:04] LABS: Appearance,Urine Clear (Clear); Bilirubin,Urine Negative (Negative); Blood,Urine Small (Negative); Color,Urine Yellow; Glucose,Urine (UA) Negative (Negative); Ketones,Urine Negative (Negative); Leukocyte Esterase,Urine Negative (Negative); Mucus,Urine Rare /hpf; Nitrite,Urine Negative (Negative); PH, Urine 5.5 (5.0-8.0); Protein,Urine Negative (Negative); RBC,Urine 1 /hpf (0-5); Specific Gravity,Urine 1.011 (1.001-1.035); Squamous Epithelial Cell,Urine <1 /hpf (0-4); Urobilinogen,Urine <2.0 mg/dL (<2.0); WBC,Urine <1 /hpf (0-5)
--- NOTE | 2018-01-03 19:46 | US ---
EXAMINATION TYPE: Transabdominal DATE OF EXAM: 06/15/17 COMPARISON: NONE CLINICAL HISTORY: pain. Vaginal bleeding with clots and left pelvic pain today EXAM PERFORMED: Transvaginal (TV) and Transabdominal (TA) EXAM MEASUREMENTS: GESTATIONAL AGE / DATING Physician Established: Not yet established Dates by LMP: (9 weeks/1 days) EDC: 08/07/18 Dates by First Scan: no prior Dates by Current Scan : No IUP seen at this time MATERNAL ANATOMY Uterus: 9.6 x 4.5 x 5.6cm Right Ovary: 2.3 x 1.4 x 2.6cm Left Ovary: 3.9 x 2.0 x 2.7cm Post CDS / Adnexa: appears wnl Presence of free fluid: no Presence of corpus luteal cyst: yes, complex area left ovary = 2.3 x 2.0 x 1.7cm GESTATION / SURVEY IUP: No IUP seen at this time Date of LMP: 10/31/17 Beta HcG (if available): Not available at this time No evidence of IUP at this time. Probable corpus luteum left ovary IMPRESSION: Uterus is empty. Complex cyst on the left ovary could be corpus luteum cyst. Findings are consistent with a complete in this patient with bleeding.
[2018-01-03] MEDS ORDERED: MORPHINE SULFATE 4 MG/ML SYRINGE IVP STA (20:44)
[2018-01-03 21:02] VITALS: BP 108/78; PULSE 78
[2018-01-04 14:28] LABS: C. trachomatis,PCR Negative (Neg,Equiv); Chlamydia trachomatis Source Vagina
[2018-01-04 14:32] LABS: N. gonorrhoeae,PCR Negative (Neg,Equiv); Neisseria Source Vagina
== END 2018-01-03 21:20 | disposition home or self-care (01) ==
LOC: EC 17:14
DX: O20.0 Threatened abortion (principal); O34.81 Maternal care for other abnormalities of pelvic organs, first trimester; N83.202 Unspecified ovarian cyst, left side; O99.511 Diseases of the respiratory system complicating pregnancy, first trimester; J45.909 Unspecified asthma, uncomplicated; O99.331 Smoking (tobacco) complicating pregnancy, first trimester; F17.200 Nicotine dependence, unspecified, uncomplicated; Z98.890 Other specified postprocedural states; Z3A.09 9 weeks gestation of pregnancy; Z89.021 Acquired absence of right finger(s); Z88.5 Allergy status to narcotic agent; Z91.048 Other nonmedicinal substance allergy status
CPT/HCPCS: 36415; 86900; 86901; 80053; 85025; 81001; 87491; 87591; 87086; 76801; 76817; 99284; 96374; 96361; J2270

== ENCOUNTER → 2018-01-03 | Outpatient (CLI) | payer OTHER | END | disposition home or self-care (01) | LOC: LABWHC1 12:03 | PROVIDERS: ATTEND Obstetrics & Gynecology | DX: Z34.81 Encounter for supervision of other normal pregnancy, first trimester (principal) | CPT/HCPCS: 36415; 84702 ==

== ENCOUNTER 2018-01-05 14:05 | Emergency (ER) | payer OTHER ==
[2018-01-05 14:09] VITALS: RESP 18
[2018-01-05] MEDS ORDERED: SODIUM CHLORIDE 0.9% 1,000 ML IV ONE (14:30)
[2018-01-05] MEDS ORDERED: ONDANSETRON 4 MG/2 ML VIAL IVP STA (15:00)
--- NOTE | 2018-01-05 15:09 | ED ---
Abdominal Pain HPI - General Chief Complaint: Abdominal Pain Stated Complaint: Poss miscarriage Time Seen by Provider: 01/05/18 14:29 Source: patient, RN notes reviewed Mode of arrival: ambulatory Limitations: no limitations - History of Present Illness Initial Comments: This a 32-year-old female presents emergency Department chief complaint severe left lower quadrant abdominal pain. Patient states that she has been following with Dr. Chatterjee and recently in the emergency department for possible ectopic . Patient states that she has had to lateral palpation for hCG which her last one was 947. Patient was schedule have lab work in today but the pain worsened and was severe and was advised to come emergency department. She states that she was here Wednesday and they did discuss possibility of admission for ectopic . A she will home and felt to be stable. Patient doesn't to some nausea no vomiting. Denies any ears, chills. Patient denies any chest pain or shortness of breath. Patient does state that she's been having vaginal bleeding and has increased slightly. - Related Data Home Medications Medication Instructions Recorded Confirmed Pnv,Calcium 72/Iron/Folic Acid 1 tab PO DAILY 01/03/18 01/05/18 [ Plus Tablet] Previous Rx's Medication Instructions Recorded HYDROcodone/APAP 5-325MG [[place] 1 tab PO Q6HR PRN #10 tab 01/03/18 5-325] Allergies Allergy/AdvReac Type Severity Reaction Status Date / Time adhesive Allergy Swelling Verified 01/05/18 14:30 codeine Allergy Rash/Hives Verified 01/05/18 14:30 Review of Systems ROS Statement: Those systems with pertinent positive or pertinent negative responses have been documented in the HPI. ROS Other: All systems not noted in ROS Statement are negative. 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 History of Any Multi-Drug Resistant Organisms: None Reported Past Surgical History: Hernia Repair, Orthopedic Surgery Additional Past Surgical History / Comment(s): right finger amputation, bilateral knee surgeries, 2 cervical LEEP procedures Past Anesthesia/Blood Transfusion Reactions: No Reported Reaction Past Psychological History: Anxiety Smoking Status: Current every day smoker Past Alcohol Use History: None Reported Past Drug Use History: Marijuana - Past Family History Father Family Medical History: Coronary Artery Disease (CAD) General Exam Limitations: no limitations General appearance: alert, in no apparent distress Neck exam: Present: normal inspection. Absent: tenderness, meningismus, lymphadenopathy Respiratory exam: Present: normal lung sounds bilaterally. Absent: respiratory distress, wheezes, rales, rhonchi, stridor Cardiovascular Exam: Present: regular rate, normal rhythm, normal heart sounds. Absent: systolic murmur, diastolic murmur, rubs, gallop, clicks GI/Abdominal exam: Present: soft, tenderness (Mild to moderate left lower quadrant), normal bowel sounds. Absent: distended, guarding, rebound, rigid Back exam: Absent: CVA tenderness (R) Skin exam: Present: warm, dry, intact, normal color. Absent: rash Course Vital Signs 01/05/18 14:06 Temperature 98.4 F Pulse Rate 113 H Respiratory 18 Rate Blood Pressure 124/71 O2 Sat by Pulse 100 Oximetry Medical Decision Making - Medical Decision Making 32-year-old female presented emergency department for possible ectopic . Patient's hCG has dropped from 947 to 90. Ultrasound was reviewed repeated shows complex ovarian cyst. Patient will follow-up with Dr. Jenkins tomorrow patient be discharged with pain medication return parameters were discussed. - Lab Data Result diagrams: 01/05/18 14:45 Lab Results 01/05/18 01/05/18 01/05/18 Range/Units 14:45 14:45 15:10 WBC 9.0 (3.8-10.6) k/uL RBC 3.90 (3.80-5.40) m/uL Hgb 12.8 (11.4-16.0) gm/dL Hct 37.9 (34.0-46.0) % MCV 97.3 (80.0-100.0) fL MCH 32.8 (25.0-35.0) pg MCHC 33.8 (31.0-37.0) g/dL RDW 12.1 (11.5-15.5) % Plt Count 237 (150-450) k/uL Neutrophils % 64 % Lymphocytes % 27 % Monocytes % 4 % Eosinophils % 2 % Basophils % 1 % Neutrophils # 5.8 (1.3-7.7) k/uL Lymphocytes # 2.4 (1.0-4.8) k/uL Monocytes # 0.4 (0-1.0) k/uL Eosinophils # 0.2 (0-0.7) k/uL Basophils # 0.1 (0-0.2) k/uL HCG, Quant 90.4 mIU/mL Urine Color Yellow Urine Appearance Cloudy H (Clear) Urine pH 6.0 (5.0-8.0) Ur Specific [place] 1.020 (1.001-1.035) Urine Protein Negative (Negative) Urine Glucose (UA) Negative (Negative) Urine Ketones Negative (Negative) Urine Blood Moderate H (Negative) Urine Nitrite Negative (Negative) Urine Bilirubin Negative (Negative) Urine Urobilinogen <2.0 (<2.0) mg/dL Ur Leukocyte Esterase Negative (Negative) Urine RBC 8 H (0-5) /hpf Urine WBC <1 (0-5) /hpf Ur Squamous Epith Cells 1 (0-4) /hpf Hyaline Casts 1 (0-2) /lpf Urine Mucus Few H (None) /hpf Disposition Clinical Impression: Complete miscarriage Disposition: HOME SELF-CARE Condition: Stable Instructions: Miscarriage (ED) Additional Instructions: Follow-up with your [facility] SECURITY DIRECTOR tomorrow.Please return to the Emergency Department if symptoms worsen or any other concerns. Is patient prescribed a controlled substance at d/c from ED?: No Referrals: Lukas Campa DO [Family Provider] - 1-2 days
[2018-01-05] MEDS ORDERED: HYDROcodone/APAP 5-325MG 1 EACH TAB PO STA (15:15)
[2018-01-05 15:19] LABS: Basophils # (A) 0.1 k/uL (0-0.2); Basophils % (A) 1 %; Eosinophils # (A) 0.2 k/uL (0-0.7); Eosinophils % (A) 2 %; HCT 37.9 % (34.0-46.0); HGB 12.8 gm/dL (11.4-16.0); Lymphocytes # (A) 2.4 k/uL (1.0-4.8); Lymphocytes % (A) 27 %; MCH 32.8 pg (25.0-35.0); MCHC 33.8 g/dL (31.0-37.0); MCV 97.3 fL (80.0-100.0); Mean Platelet Volume 6.8; Monocytes # (A) 0.4 k/uL (0-1.0); Monocytes % (A) 4 %; Neutrophils # (A) 5.8 k/uL (1.3-7.7); Neutrophils % (A) 64 %; Platelet Count 237 k/uL (150-450); RDW 12.1 % (11.5-15.5)
[2018-01-05 15:36] LABS: Appearance,Urine Cloudy (Clear); Bilirubin,Urine Negative (Negative); Blood,Urine Moderate (Negative); Color,Urine Yellow; Glucose,Urine (UA) Negative (Negative); Hyaline Casts,Urine 1 /lpf (0-2); Ketones,Urine Negative (Negative); Leukocyte Esterase,Urine Negative (Negative); Mucus,Urine Few /hpf; Nitrite,Urine Negative (Negative); Protein,Urine Negative (Negative); RBC,Urine 8 /hpf (0-5); Squamous Epithelial Cell,Urine 1 /hpf (0-4); Urobilinogen,Urine <2.0 mg/dL (<2.0); WBC,Urine <1 /hpf (0-5)
--- NOTE | 2018-01-05 16:39 | US ---
EXAMINATION TYPE: Transabdominal DATE OF EXAM: 06/15/17 COMPARISON: US 01/03/2018 CLINICAL HISTORY: Pelvic pain. EXAM PERFORMED: Transvaginal (TV) and Transabdominal (TA) EXAM MEASUREMENTS: GESTATIONAL AGE / DATING Physician Established: Not yet established Dates by LMP: (9 weeks/4 days) EDC: 08/07/17 Dates by First Scan: No IUP seen at this time Dates by Current Scan for: No IUP seen at this time MATERNAL ANATOMY Uterus: 8.1 x 4.6 x 6.1 cm Endometrium: 0.3 cm Right Ovary: 2.7 x 1.9 x 1.9 cm Left Ovary: 2.7 x 2.2 x 2.2 cm Post CDS / Adnexa: wnl Presence of free fluid: No Presence of corpus luteal cyst: Left ovary measuring 1.7 x 1.4 x 1.2 cm Presence of subchorionic bleed: No GESTATION / SURVEY IUP: No IUP seen at this time Date of LMP: 10/31/17 Beta HcG (if available): 90 IMPRESSION: No current evidence of intrauterine . Given the beta hCG level of 90 sonographic evidence of intrauterine would not be expected. This is discordant with the patient's stated last mens es. Therefore spontaneous , ectopic or the possibility of early intrauterine pregna ncy are not yet excluded. Again the left ovary demonstrates a complex cyst that could represent a cor pus luteal cyst. Short-term serial serum beta hCGs are recommended. Pelvic ultrasound 5-7 days could confirm findings.
[2018-01-05] MEDS ORDERED: diphenhydrAMINE 50 MG/ML 1 ML VIAL IVP STA (17:13)
[2018-01-05] MEDS ORDERED: traMADol 50 MG STARTER PACK 3 TAB BTL PO STA (17:13)
[2018-01-05] MEDS ORDERED: METOCLOPRAMIDE 5 MG/ML 2 ML VIAL IVP STA (17:13)
[2018-01-05] MEDS ORDERED: KETOROLAC 30 MG/ML 1 ML VIAL IVP STA (17:13)
[2018-01-05 17:38] VITALS: BP 102/67; PULSE 66; TEMP 98
== END 2018-01-05 17:38 | disposition home or self-care (01) ==
LOC: EC 14:05
DX: O03.9 Complete or unspecified spontaneous abortion without complication (principal); N83.202 Unspecified ovarian cyst, left side; F17.200 Nicotine dependence, unspecified, uncomplicated; Z89.021 Acquired absence of right finger(s); Z98.890 Other specified postprocedural states; Z87.42 Personal history of other diseases of the female genital tract; Z88.5 Allergy status to narcotic agent; Z91.048 Other nonmedicinal substance allergy status
CPT/HCPCS: 36415; 85025; 81001; 84702; 76801; 76817; 99284; 96374; 96375 ×3; 96361 ×2; J1200; J2765; J2405; J1885

== ENCOUNTER 2018-09-04 16:38 | Emergency (ER) | payer OTHER ==
[2018-09-04 16:43] VITALS: BP 134/79; PULSE 108; RESP 18; TEMP 99.1
[2018-09-04 17:49] LABS: Basophils # (A) 0.1 k/uL (0-0.2); Basophils % (A) 1 %; Eosinophils % (A) 0 %; HCT 40.4 % (34.0-46.0); HGB 13.5 gm/dL (11.4-16.0); Lymphocytes # (A) 2.1 k/uL (1.0-4.8); Lymphocytes % (A) 21 %; MCH 31.7 pg (25.0-35.0); MCHC 33.4 g/dL (31.0-37.0); MCV 95.1 fL (80.0-100.0); Mean Platelet Volume 7.3; Monocytes # (A) 0.5 k/uL (0-1.0); Monocytes % (A) 5 %; Neutrophils # (A) 7.2 k/uL (1.3-7.7); Neutrophils % (A) 71 %; Platelet Count 315 k/uL (150-450); RBC 4.25 m/uL (3.80-5.40); RDW 13.2 % (11.5-15.5); WBC 10.1 k/uL (3.8-10.6)
--- NOTE | 2018-09-04 17:57 | ED ---
Abdominal Pain HPI - General Chief Complaint: Abdominal Pain Stated Complaint: early /abd pain Time Seen by Provider: 09/04/18 16:46 Source: patient Mode of arrival: ambulatory Limitations: no limitations - History of Present Illness Initial Comments: Patient is a 33-year-old female presenting to the emergency room with complaints of lower right-sided quadrant pain x today. Patient states she is but is unsure how far along she is. Patient states her last menstrual cycle was in early July. Patient has history of previous miscarriages. Patient states the abdominal pain started this morning and has been on and off. She presently rates the pain at 6/10. She denies any vaginal discharge, bleeding, burning with urination, nausea, vomiting. Patient denies history of kidney stones. No other complaints at this time. - Related Data Home Medications Medication Instructions Recorded Confirmed Pnv,Calcium 72/Iron/Folic Acid 1 tab PO DAILY 01/03/18 01/05/18 [ Plus Tablet] Previous Rx's Medication Instructions Recorded HYDROcodone/APAP 5-325MG [[place] 1 tab PO Q6HR PRN #10 tab 01/03/18 5-325] Allergies Allergy/AdvReac Type Severity Reaction Status Date / Time adhesive Allergy Swelling Verified 09/04/18 16:43 codeine Allergy Rash/Hives Verified 09/04/18 16:43 Review of Systems ROS Statement: Those systems with pertinent positive or pertinent negative responses have been documented in the HPI. ROS Other: All systems not noted in ROS Statement are negative. 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 History of Any Multi-Drug Resistant Organisms: None Reported Past Surgical History: Hernia Repair, Orthopedic Surgery Additional Past Surgical History / Comment(s): right finger amputation, bilateral knee surgeries, 2 cervical LEEP procedures Past Anesthesia/Blood Transfusion Reactions: No Reported Reaction Past Psychological History: Anxiety Smoking Status: Current every day smoker Past Alcohol Use History: None Reported Past Drug Use History: Marijuana - Past Family History Father Family Medical History: Coronary Artery Disease (CAD) General Exam - General Exam Comments Initial Comments: GENERAL: Well-appearing, well-nourished and in no acute distress. HEAD: Atraumatic, normocephalic. EYES: Pupils equal round and reactive to light, extraocular movements intact, sclera anicteric, conjunctiva are normal. ENT: TMs normal, nares patent, oropharynx clear without exudates. Moist mucous membranes. NECK: Normal range of motion, supple without lymphadenopathy or JVD. LUNGS: Breath sounds clear to auscultation bilaterally and equal. No wheezes rales or rhonchi. HEART: Regular rate and rhythm without murmurs, rubs or gallops. ABDOMEN: Tender to palpation lower right quadrant and into the right side. Soft, normoactive bowel sounds. No guarding, no rebound. No masses appreciated. : Deferred EXTREMITIES: Normal range of motion, no pitting or edema. No clubbing or cyanosis. NEUROLOGICAL: Cranial nerves II through XII grossly intact. Normal speech, normal gait. PSYCH: Normal mood, normal affect. SKIN: Warm, Dry, normal turgor, no rashes or lesions noted. Limitations: no limitations Course Vital Signs 09/04/18 16:40 Temperature 99.1 F Pulse Rate 108 H Respiratory 18 Rate Blood Pressure 134/79 O2 Sat by Pulse 98 Oximetry Medical Decision Making - Medical Decision Making Patient is a 32-year-old female complaining of right lower abdominal pain times this morning. Patient states she thinks she is about 5-6 weeks . Patient has history of miscarriages. Patient denies any vaginal discharge at this time. On exam patient is tender in the lower right quadrant. Ultrasound called with results as they are having IT issues right now and can not transmit the results. US reveals at 6 weeks, heart rate of 105. There is a cyst on her right ovary. HCG Fredrick is a little over 22,000. CBC, CMP, UA are all within normal limits. Vital signs are stable. Patient will be discharged home and will follow up with OB. Patient is happy with this plan. Case is discussed with Dr. Tellez. - Lab Data Result diagrams: 09/04/18 17:08 09/04/18 17:08 Lab Results 09/04/18 09/04/18 09/04/18 Range/Units 17:08 17:08 18:15 WBC 10.1 (3.8-10.6) k/uL RBC 4.25 (3.80-5.40) m/uL Hgb 13.5 (11.4-16.0) gm/dL Hct 40.4 (34.0-46.0) % MCV 95.1 (80.0-100.0) fL MCH 31.7 (25.0-35.0) pg MCHC 33.4 (31.0-37.0) g/dL RDW 13.2 (11.5-15.5) % Plt Count 315 (150-450) k/uL Neutrophils % 71 % Lymphocytes % 21 % Monocytes % 5 % Eosinophils % 0 % Basophils % 1 % Neutrophils # 7.2 (1.3-7.7) k/uL Lymphocytes # 2.1 (1.0-4.8) k/uL Monocytes # 0.5 (0-1.0) k/uL Eosinophils # 0.0 (0-0.7) k/uL Basophils # 0.1 (0-0.2) k/uL Sodium 139 (137-145) mmol/L Potassium 4.4 (3.5-5.1) mmol/L Chloride 106 (98-107) mmol/L Carbon Dioxide 21 L (22-30) mmol/L Anion Gap 12 mmol/L BUN 13 (7-17) mg/dL Creatinine 0.54 (0.52-1.04) mg/dL Est GFR (CKD-EPI)AfAm >90 (>60 ml/min/1.73 sqM) Est GFR (CKD-EPI)NonAf >90 (>60 ml/min/1.73 sqM) Glucose 91 (74-99) mg/dL Calcium 9.5 (8.4-10.2) mg/dL Total Bilirubin 0.3 (0.2-1.3) mg/dL AST 36 (14-36) U/L ALT 25 (9-52) U/L Alkaline Phosphatase 64 (38-126) U/L Total Protein 7.1 (6.3-8.2) g/dL Albumin 4.4 (3.5-5.0) g/dL HCG, Quant 06378.5 mIU/mL Urine Color Yellow Urine Appearance Clear (Clear) Urine pH 5.5 (5.0-8.0) Ur Specific [place] 1.025 (1.001-1.035) Urine Protein Negative (Negative) Urine Glucose (UA) Negative (Negative) Urine Ketones Negative (Negative) Urine Blood Trace H (Negative) Urine Nitrite Negative (Negative) Urine Bilirubin Negative (Negative) Urine Urobilinogen <2.0 (<2.0) mg/dL Ur Leukocyte Esterase Negative (Negative) Urine RBC 4 (0-5) /hpf Urine WBC <1 (0-5) /hpf Ur Squamous Epith Cells 1 (0-4) /hpf Urine Mucus Rare H (None) /hpf Disposition Clinical Impression: Early stage of , Abdominal pain Disposition: HOME SELF-CARE Condition: Stable Instructions (If sedation given, give patient instructions): Abdominal Pain in (ED) Additional Instructions: Please return to the Emergency Department if symptoms worsen or any other concerns. Follow-up with OB. Is patient prescribed a controlled substance at d/c from ED?: No Referrals: None,Stated [Primary Care Provider] - 1-2 days
[2018-09-04 18:02] LABS: ALT 25 U/L (9-52); AST 36 U/L (14-36); African American GFR (CKD) >90 (>60 ml/min/1.73 sqM); Albumin 4.4 g/dL (3.5-5.0); Alkaline Phosphatase 64 U/L (38-126); Anion Gap 12 mmol/L; Blood Urea Nitrogen 13 mg/dL (7-17); Calcium 9.5 mg/dL (8.4-10.2); Carbon Dioxide 21 mmol/L (22-30); Chloride 106 mmol/L (98-107); Glucose 91 mg/dL (74-99); Sodium 139 mmol/L (137-145); Total Bilirubin 0.3 mg/dL (0.2-1.3); Total Protein 7.1 g/dL (6.3-8.2)
[2018-09-04 18:09] LABS: Potassium 4.4 mmol/L (3.5-5.1)
[2018-09-04 18:44] LABS: HCG,Quantitative Serum 22439.5 mIU/mL
[2018-09-04 18:56] LABS: Appearance,Urine Clear (Clear); Bilirubin,Urine Negative (Negative); Blood,Urine Trace (Negative); Color,Urine Yellow; Glucose,Urine (UA) Negative (Negative); Ketones,Urine Negative (Negative); Leukocyte Esterase,Urine Negative (Negative); Mucus,Urine Rare /hpf; Nitrite,Urine Negative (Negative); PH, Urine 5.5 (5.0-8.0); Protein,Urine Negative (Negative); RBC,Urine 4 /hpf (0-5); Specific Gravity,Urine 1.025 (1.001-1.035); Squamous Epithelial Cell,Urine 1 /hpf (0-4); Urobilinogen,Urine <2.0 mg/dL (<2.0)
--- NOTE | 2018-09-05 08:09 | US ---
EXAMINATION TYPE: Transabdominal DATE OF EXAM: 09/04/2018 6:11 PM COMPARISON: NONE CLINICAL HISTORY: Pain. cramping on the right side, multiple miscarriages, A4 EXAM PERFORMED: OBTA EXAM MEASUREMENTS: GESTATIONAL AGE / DATING Physician Established: Not yet established Dates by LMP: (5 weeks/4 days) EDC: 05/03/2019 Dates by First Scan: No previous this is first scan Dates by Current Scan for: (6 weeks/0 days) EDC: 04/30/2019 MATERNAL ANATOMY Uterus: 8.6 x 6.2 x 5.2cm Right Ovary: 3.4 x 2.4 x 2.4cm Left Ovary: 1.6 x 1.5 x 1.6cm Post CDS / Adnexa: wnl Presence of free fluid: no Presence of corpus luteal cyst: YES, RIGHT OVARY = 2.0cm Presence of subchorionic bleed: no GESTATION / SURVEY CRL: 0.34cm (6 weeks/0 days) MSD: wnl Yolk Sac (normal less than 6mm): 0.3cm Heart Rate: 104 bpm Rhythm: Normal IUP: Viable IUP Date of LMP: 07/27/2018 Beta HcG (if available): pending IMPRESSION: Single live intrauterine with a calculated sonographic age of 6 weeks and 0 days and estima krystin date of delivery of 04/30/2019, concordant with menstrual age. Heart rate is within normal limits for this gestational age.
== END 2018-09-04 19:29 | disposition home or self-care (01) ==
LOC: EC 16:38
DX: O99.89 Other specified diseases and conditions complicating pregnancy, childbirth and the puerperium (principal); R10.31 Right lower quadrant pain; O99.331 Smoking (tobacco) complicating pregnancy, first trimester; F17.200 Nicotine dependence, unspecified, uncomplicated; Z3A.01 Less than 8 weeks gestation of pregnancy; Z88.5 Allergy status to narcotic agent; Z91.048 Other nonmedicinal substance allergy status
CPT/HCPCS: 36415; 76801; 80053; 81001; 84702; 85025; 99284

== ENCOUNTER → 2018-10-04 | Outpatient (CLI) | payer OTHER ==
--- NOTE | 2018-10-04 15:27 | US ---
EXAMINATION TYPE: Ultrasound OB <= 14 week fetus DATE OF EXAM: 10/04/2018 2:59 PM COMPARISON: 09/04/2018 CLINICAL HISTORY: 33-year-old female [id number] CONFIRM VIABILITY. EXAM PERFORMED: Transabdominal (TA) FINDINGS: EXAM MEASUREMENTS: GESTATIONAL AGE / DATING Physician Established: (10 weeks/2 days) EDC: 04/30/2019 Dates by LMP: (9 weeks/5 days) EDC: 05/04/2019 Dates by First Scan: (10 weeks/2 days) EDC: 04/30/2019 Dates by Current Scan for: (10 weeks/2 days) EDC: 04/30/2019 MATERNAL ANATOMY Uterus: 10.7 x 8.3 x 7.7cm Right Ovary: 3.0 x 2.2 x 2.0cm Left Ovary: 3.4 x 2.1 x 2.4cm Post CDS / Adnexa: wnl Presence of free fluid: no Presence of corpus luteal cyst: no identified today Presence of subchorionic bleed: no GESTATION / SURVEY CRL: 3.4 (10 weeks/2 days) Yolk Sac (normal less than 6mm): 2.3mm Heart Rate: 175 bpm, upper limits of normal. Rhythm: Normal IUP: Viable IUP Nuchal Translucency 10-14wks (normal less than 3mm): 1.0mm Date of LMP: 07/26/2018 per patient today Beta HcG (if available): NA English [employer] notes: Single, live IUP,10 weeks/2 days, EDC: 04/30/2019, HR 175bpm. Tech findings called to Dr Campa at exam's end. JDenise IMPRESSION: 1. Single live intrauterine with established gestational age of 10 weeks 2 days by prior da ting scan. Current ultrasound biometry remains concordant. 2. Consider short interval follow-up given heart rate at the upper limits of normal (175 BPM). 3. Complete survey will be recommended at 18-20 weeks.
[2018-10-04 15:33] LABS: HCT 37.4 % (34.0-46.0); HGB 12.5 gm/dL (11.4-16.0); MCH 32.7 pg (25.0-35.0); MCHC 33.4 g/dL (31.0-37.0); MCV 97.9 fL (80.0-100.0); Mean Platelet Volume 6.6; Platelet Count 267 k/uL (150-450); RBC 3.82 m/uL (3.80-5.40); RDW 12.8 % (11.5-15.5); WBC 11.2 k/uL (3.8-10.6)
[2018-10-04 15:45] LABS: African American GFR (CKD) >90 (>60 ml/min/1.73 sqM); Glucose 100 mg/dL (74-99)
[2018-10-04 19:49] LABS: HIV 1 AB Non-Reactive (Non-Reactive); HIV AB P24 Non-Reactive (Non-Reactive); HIV P24 AG Non-Reactive (Non-Reactive)
[2018-10-05 05:36] LABS: Toxoplasma Antibody (IgG) <3.0 IU/mL (<7.2); Toxoplasma Antibody (IgM) <3.0 AU/mL (<8.0)
== END | disposition home or self-care (01) ==
LOC: RADUSWWP 14:35
PROVIDERS: ATTEND Obstetrics & Gynecology
DX: Z36.89 Encounter for other specified antenatal screening (principal); Z3A.20 20 weeks gestation of pregnancy
CPT/HCPCS: 36415; 76801; 76813; 82565; 82947; 85027; 86762; 86777; 86778; 86780; 86850; 86900; 86901; 87340; 87390

== ENCOUNTER 2018-11-28 12:31 | Emergency (ER) | payer OTHER ==
[2018-11-28 12:47] VITALS: BP 117/79; PULSE 88; RESP 18; TEMP 99.1
--- NOTE | 2018-11-28 13:12 | ED ---
Abdominal Pain HPI - General Chief Complaint: Abdominal Pain Stated Complaint: Rt lower abd.pain Time Seen by Provider: 11/28/18 12:55 Source: patient Mode of arrival: ambulatory Limitations: no limitations - History of Present Illness Initial Comments: 33-year-old female currently 18 weeks presenting for evaluation of right lower quadrant abdominal pain some by FEDERAL APPELLATE CLERK for rule out appendicitis. Patient states that early this morning around 2:30 AM she distended to develop right lower quadrant abdominal pain that woke her up at night. Patient states has been persistent. She states that patient she feels she has had chills at home. She states her temperature is 99.9F at her FEDERAL APPELLATE CLERK office. Patient states the pain increases with lifting the right leg. Patient states that she has had no appetite. Patient states that there is tenderness in the right lower quadrant and sharp. She states that she began experiencing the pain earlier in the morning however as she could wait until her FEDERAL APPELLATE CLERK appointment for evaluation. At her FEDERAL APPELLATE CLERK appointment with Dr. Jenkins. Ultrasound of the pelvis and ovaries stating that there is no abnormalities. Given patient's complaint and area of tenderness she was concerned of appendicitis and sent patient for CT of the abdomen and pelvis to rule out this condition. Upon arrival to emergency Department patient is afebrile, nontoxic appearing, no acute distress. Patient states she has had some nausea with the as well as vomiting denies any increase. Patient denies any leg swelling diarrhea chest pain shortness of breath or any other complaints today. - Related Data Home Medications Medication Instructions Recorded Confirmed Pnv,Calcium 72/Iron/Folic Acid 1 tab PO DAILY 01/03/18 11/28/18 [ Plus Tablet] Acyclovir 400 mg PO DAILY 11/28/18 11/28/18 Allergies Allergy/AdvReac Type Severity Reaction Status Date / Time adhesive Allergy Swelling Verified 11/28/18 13:10 codeine Allergy Rash/Hives Verified 11/28/18 13:10 Review of Systems ROS Statement: Those systems with pertinent positive or pertinent negative responses have been documented in the HPI. ROS Other: All systems not noted in ROS Statement are negative. 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 History of Any Multi-Drug Resistant Organisms: None Reported Past Surgical History: Hernia Repair, Orthopedic Surgery Additional Past Surgical History / Comment(s): right finger amputation, bilateral knee surgeries, 2 cervical LEEP procedures Past Anesthesia/Blood Transfusion Reactions: No Reported Reaction Past Psychological History: Anxiety Smoking Status: Current every day smoker Past Alcohol Use History: None Reported Past Drug Use History: None Reported - Past Family History Father Family Medical History: Coronary Artery Disease (CAD) General Exam - General Exam Comments Initial Comments: General: The patient is awake and alert, in no distress, and does not appear acutely ill. Eye: +3 mm pupils are equal, round and reactive to light, extra-ocular movements are intact. No nystagmus. There is normal conjunctiva bilaterally. No signs of icterus. Ears, nose, mouth and throat: There are moist mucous membranes and no oral lesions. Neck: The neck is supple, there is no tenderness or JVD. Cardiovascular: There is a regular rate and rhythm. No murmur, rub or gallop is appreciated. Respiratory: Lungs are clear to auscultation, respirations are non-labored, breath sounds are equal. No wheezes, stridor, rales, or rhonchi. Gastrointestinal: Abdomen is distended consistent with , there is tenderness in the RLQ of the abdomen, no pelvic tenderness, abdomen without masses/ There is no rebound or guarding present. No CVA tenderness. Bowel sounds are unremarkable. Musculoskeletal: Normal ROM, no tenderness. Strength 5/5. Sensation intact. Pulses equal bilaterally 2+. Neurological: A&O x 3. CN II-XII intact, There are no obvious motor or sensory deficits. Coordination appears grossly intact. Speech is normal. Skin: Skin is warm and dry and no rashes or lesions are noted. Psychiatric: Cooperative, appropriate mood & affect, normal judgment. Limitations: no limitations Course Vital Signs 11/28/18 12:44 Temperature 99.1 F Pulse Rate 88 Respiratory 18 Rate Blood Pressure 117/79 O2 Sat by Pulse 98 Oximetry - Reevaluation(s) Reevaluation #1: Spoke with patients OBGYN Dr. Campa who sent patient for r/o of appendicitis. He states that pelvic US, evaluation of ovaries as well as baby was WNL. Concern given history, PE findings that patient may have acute appendicitis. I contacted Dr. Reyna radiologist who recommended surgical consultation prior to obtaining study. 11/28/18 13:19 Reevaluation #2: I contacted Dr. Reyna who recommended surgical consultation prior to obtaining study. Dr. Champion evaluated patient spoke with Dr. Lang, who approved CT as undx appendicitis would place both mother and patient at risk of . Discussed risk benefit with mother and option of observation with patient, she states she would rather go forward with CT despite risks to fetus. Aware of risks. Medical Decision Making - Medical Decision Making 18wk female presented for right lower quadrant pain lack of appetite, feeling as though she has a fever with a recorded temperature of 99.9 at her FEDERAL APPELLATE CLERK office, sent to r/o appendicitis. Given the area of tenderness on physical examination patient's complaint and history there is concern for appendicitis. We discussed case with patient's FEDERAL APPELLATE CLERK, on-call surgery, radiology at this time all physicians are on board to obtain CT of the abdomen and pelvis. There is no signs or symptoms or signs of appendicitis. Patient's laboratory studies are stable. Different diagnosis includes possible ligamentous strain. Patient does not want observation at this time. She states she would prefer to go home. Return parameters were discussed as well as importance of FEDERAL APPELLATE CLERK follow-up. Patient is agreeable to this care plan and discharge at this time patient was discharged appearing well. The course the patient's care I had consult them attending by Dr. Champion who did a value the patient in person. - Lab Data Result diagrams: 11/28/18 13:20 11/28/18 13:20 Lab Results 11/28/18 11/28/18 11/28/18 Range/Units 13:20 13:20 13:56 WBC 12.4 H (3.8-10.6) k/uL RBC 3.66 L (3.80-5.40) m/uL Hgb 12.4 (11.4-16.0) gm/dL Hct 34.8 (34.0-46.0) % MCV 95.0 (80.0-100.0) fL MCH 33.7 (25.0-35.0) pg MCHC 35.5 (31.0-37.0) g/dL RDW 12.6 (11.5-15.5) % Plt Count 284 (150-450) k/uL Neutrophils % 77 % Lymphocytes % 16 % Monocytes % 4 % Eosinophils % 1 % Basophils % 0 % Neutrophils # 9.6 H (1.3-7.7) k/uL Lymphocytes # 2.0 (1.0-4.8) k/uL Monocytes # 0.5 (0-1.0) k/uL Eosinophils # 0.1 (0-0.7) k/uL Basophils # 0.0 (0-0.2) k/uL Sodium 135 L (137-145) mmol/L Potassium 3.6 (3.5-5.1) mmol/L Chloride 106 (98-107) mmol/L Carbon Dioxide 21 L (22-30) mmol/L Anion Gap 8 mmol/L BUN 10 (7-17) mg/dL Creatinine 0.46 L (0.52-1.04) mg/dL Est GFR (CKD-EPI)AfAm >90 (>60 ml/min/1.73 sqM) Est GFR (CKD-EPI)NonAf >90 (>60 ml/min/1.73 sqM) Glucose 91 (74-99) mg/dL Calcium 9.0 (8.4-10.2) mg/dL Total Bilirubin 0.3 (0.2-1.3) mg/dL AST 23 (14-36) U/L ALT 25 (9-52) U/L Alkaline Phosphatase 52 (38-126) U/L Total Protein 6.2 L (6.3-8.2) g/dL Albumin 3.5 (3.5-5.0) g/dL Urine Color Yellow Urine Appearance Clear (Clear) Urine pH 6.0 (5.0-8.0) Ur Specific [place] 1.025 (1.001-1.035) Urine Protein Negative (Negative) Urine Glucose (UA) Negative (Negative) Urine Ketones Negative (Negative) Urine Blood Negative (Negative) Urine Nitrite Negative (Negative) Urine Bilirubin Negative (Negative) Urine Urobilinogen <2.0 (<2.0) mg/dL Ur Leukocyte Esterase Small H (Negative) Urine RBC 3 (0-5) /hpf Urine WBC 1 (0-5) /hpf Ur Squamous Epith Cells 4 (0-4) /hpf Urine Bacteria Rare H (None) /hpf Urine Mucus Rare H (None) /hpf Disposition Clinical Impression: Abdominal pain, Abdominal pain during Disposition: HOME SELF-CARE Condition: Good Instructions (If sedation given, give patient instructions): Abdominal Pain in (ED) Additional Instructions: Please use medication as discussed. Please follow-up with family doctor and OBGYN in the next 24 hours. Please return to emergency room if the symptoms increase or worsen or for any other concerns. Is patient prescribed a controlled substance at d/c from ED?: No Referrals: Lukas Campa DO [Primary Care Provider] - 1-2 days Time of Disposition: 16:09
[2018-11-28] MEDS ORDERED: ACETAMINOPHEN TAB 325 MG TAB PO STA (13:29)
[2018-11-28 13:32] LABS: Basophils % (A) 0 %; Eosinophils # (A) 0.1 k/uL (0-0.7); Eosinophils % (A) 1 %; HCT 34.8 % (34.0-46.0); HGB 12.4 gm/dL (11.4-16.0); Lymphocytes % (A) 16 %; MCH 33.7 pg (25.0-35.0); MCHC 35.5 g/dL (31.0-37.0); Mean Platelet Volume 6.1; Monocytes # (A) 0.5 k/uL (0-1.0); Monocytes % (A) 4 %; Neutrophils # (A) 9.6 k/uL (1.3-7.7); Neutrophils % (A) 77 %; Platelet Count 284 k/uL (150-450); RBC 3.66 m/uL (3.80-5.40); RDW 12.6 % (11.5-15.5); WBC 12.4 k/uL (3.8-10.6)
[2018-11-28 13:44] LABS: ALT 25 U/L (9-52); AST 23 U/L (14-36); African American GFR (CKD) >90 (>60 ml/min/1.73 sqM); Albumin 3.5 g/dL (3.5-5.0); Alkaline Phosphatase 52 U/L (38-126); Anion Gap 8 mmol/L; Blood Urea Nitrogen 10 mg/dL (7-17); Carbon Dioxide 21 mmol/L (22-30); Chloride 106 mmol/L (98-107); Glucose 91 mg/dL (74-99); Potassium 3.6 mmol/L (3.5-5.1); Sodium 135 mmol/L (137-145); Total Bilirubin 0.3 mg/dL (0.2-1.3); Total Protein 6.2 g/dL (6.3-8.2)
[2018-11-28 14:23] LABS: Appearance,Urine Clear (Clear); Bacteria,Urine Rare /hpf; Bilirubin,Urine Negative (Negative); Blood,Urine Negative (Negative); Color,Urine Yellow; Glucose,Urine (UA) Negative (Negative); Ketones,Urine Negative (Negative); Leukocyte Esterase,Urine Small (Negative); Mucus,Urine Rare /hpf; Nitrite,Urine Negative (Negative); Protein,Urine Negative (Negative); RBC,Urine 3 /hpf (0-5); Specific Gravity,Urine 1.025 (1.001-1.035); Squamous Epithelial Cell,Urine 4 /hpf (0-4); Urobilinogen,Urine <2.0 mg/dL (<2.0); WBC,Urine 1 /hpf (0-5)
--- NOTE | 2018-11-28 15:56 | CT ---
EXAMINATION TYPE: CT abdomen pelvis wo con DATE OF EXAM: 11/28/2018 HISTORY: RLQ pain CT DLP: 436.5 mGycm. Automated Exposure Control for Dose Reduction was Utilized. TECHNIQUE: CT scan of the abdomen and pelvis is performed without oral or IV contrast. Exam performe d despite patient being second trimester due to degree of clinical suspicion after request by OB and ER physician with surgical consultation also requesting CT despite radiation risks. Risks o f radiation exposure during explained to patient and patient consented to exam prior to sca nning. COMPARISON: CT abdomen and pelvis November 13, 2017 FINDINGS: Within the limitations of a non-contrast study, the following observations are made. LUNG BASES: No significant abnormality is appreciated. LIVER/GB: No significant abnormality is appreciated. PANCREAS: No significant abnormality is seen. SPLEEN: No significant abnormality is seen. ADRENALS: No significant abnormality is seen. KIDNEYS: No renal calculi or hydronephrosis is seen bilaterally. BOWEL: No suspicious small or large bowel dilatation. Terminal ileum is felt within normal limits cor onal image 51. No inflammatory change at base of cecum. There is small layering appendix suspected po sterior from sacrum seen best on sagittal images 37 through 40 without surrounding inflammatory bender e extending inferiorly on coronal image 49. GENITAL ORGANS: No anteverted uterus with intrauterine fetus is seen. No free fluid in pelvic cul-de-sac. Local mass effect from enlarged uterus is noted. LYMPH NODES: No greater than 1cm abdominal or pelvic lymph nodes are appreciated. OSSEOUS STRUCTURES: Moderate disc space narrowing lumbosacral junction. OTHER: Small fat-containing umbilical hernia present. IMPRESSION: No CT evidence for acute appendicitis. No suspicious new or acute finding identified to a ccount for patient's symptoms of right lower quadrant pain.
== END 2018-11-28 16:24 | disposition home or self-care (01) ==
LOC: EC 12:31
DX: O99.89 Other specified diseases and conditions complicating pregnancy, childbirth and the puerperium (principal); R10.31 Right lower quadrant pain; R63.0 Anorexia; O21.9 Vomiting of pregnancy, unspecified; O99.332 Smoking (tobacco) complicating pregnancy, second trimester; F17.200 Nicotine dependence, unspecified, uncomplicated; Z79.899 Other long term (current) drug therapy; Z91.048 Other nonmedicinal substance allergy status; Z88.5 Allergy status to narcotic agent; Z3A.18 18 weeks gestation of pregnancy
CPT/HCPCS: 36415; 74176; 80053; 81001; 85025; 99284

== ENCOUNTER → 2019-02-27 | Outpatient (CLI) | payer OTHER ==
[2019-02-27 11:30] LABS: HCT 33.8 % (34.0-46.0); HGB 11.3 gm/dL (11.4-16.0); MCH 31.8 pg (25.0-35.0); MCHC 33.5 g/dL (31.0-37.0); Mean Platelet Volume 7.2; Platelet Count 392 k/uL (150-450); RBC 3.56 m/uL (3.80-5.40); RDW 12.2 % (11.5-15.5)
[2019-02-27 17:48] LABS: T4, Free (Free Thyroxine) 0.7 ng/dL (0.80-1.80)
== END | disposition home or self-care (01) ==
LOC: LABWHC1 09:32
PROVIDERS: ATTEND Obstetrics & Gynecology
DX: Z34.82 Encounter for supervision of other normal pregnancy, second trimester (principal); Z3A.00 Weeks of gestation of pregnancy not specified
CPT/HCPCS: 36415; 82950; 84439; 84443; 84479; 85027

== ENCOUNTER 2019-03-04 09:10 | Outpatient (CLI) | payer OTHER ==
[2019-03-04 10:39] LABS: Appearance,Urine Clear (Clear); Bilirubin,Urine Negative (Negative); Blood,Urine Negative (Negative); Color,Urine Yellow; Glucose,Urine (UA) 2+ (Negative); Ketones,Urine 1+ (Negative); Leukocyte Esterase,Urine Small (Negative); Mucus,Urine Occasional /hpf; Nitrite,Urine Negative (Negative); PH, Urine 6.5 (5.0-8.0); Protein,Urine Trace (Negative); RBC,Urine 3 /hpf (0-5); Squamous Epithelial Cell,Urine 2 /hpf (0-4); Urobilinogen,Urine <2.0 mg/dL (<2.0); WBC,Urine 1 /hpf (0-5)
[2019-03-04 11:53] VITALS: BP 130/74; PULSE 120; RESP 20; TEMP 98.1
--- NOTE | 2019-03-05 08:59 | P.MSEPDOC ---
Presenting Problems - Arrival Data Date of Arrival on Unit: 03/04/19 Time of Arrival on Unit: 09:11 Mode of Transport: Wheelchair - Complaint OB-Reason for Admission/Chief Complaint: Other Medical History - Information : 7 Para: 2 Term: 2 : 0 Abortions: Spontaneous or Elective: 4 Number of Living Children: 2 - Gestational Age Gestational Age by JOHN (wks/days): 31 Weeks and 6 Days - History Complications: Other Comment: pt arrived c/o contractions Review of Systems - Review of Systems Constitutional: No problems Breast: No problems ENT: No problems Cardiovascular: No problems Respiratory: No problems Gastrointestinal: No problems Genitourinary: No problems Musculoskeletal: No problems Neurological: No problems Skin: No problems Vital Signs - Temperature Temperature: 98.1 F Temperature Source: Oral - Pulse Right Brachial Pulse Rate: 120 Pulse Assessment Method: Auscultation - Respirations Respiratory Rate: 20 Oxygen Delivery Method: Room Air - Blood Pressure Right Arm Blood Pressure: 130/74 Blood Pressure Mean: 92 Blood Pressure Source: Automatic Cuff Medical Screen Scoring (Pre) - Cervical Exam Dilation: 0 cm = 0 Effacement: Exam Deferred Membranes: Intact - Uterine Contractions Frequency: N/A Duration: N/A Intensity: N/A - Maternal Vital Signs Maternal Temperature: N/A Signs of Preeclampsia: N/A Maternal Respirations: N/A - Maternal Trauma Maternal Trauma: N/A - Assessment - Baby A Baseline FHR: 130 Heart Rate - NICHD Category: Category I (Normal) = 0 NST: Reactive Position: N/A Station: N/A - Total Score - Baby A Total Score - Baby A: 0 - Total Score - Baby B Total Score - Baby B: 0 - Total Score - Baby C Total Score - Baby C: 0 - Level of Risk - Baby A Level of Risk - Baby A: Low (0-5) - Level of Risk - Baby B Level of Risk - Baby B: Low (0-5) - Level of Risk - Baby C Level of Risk - Baby C: Low (0-5) Physician Notification (Pre) - Physician Notified Physician Notified Date: 03/04/19 Physician Notified Time: 09:45 New Order Received: Yes - Notification Comment Comment: send a clean catch u/a and continue to oabserve for [address] Hook in department at 1130 viewed strips and u/a resullts given. orders received may discharge to home with instructions Disposition - Disposition OB Disposition: Discharge to home Discharge Date: 03/04/19 Discharge Time: 11:45 I agree with the RN Medical Screening Exam: Yes Risk & Benefit of care provided described in d/c instruction: Yes Diagnosis: FALSE LABOR BEFORE 37 COMPLETED WEEKS OF GEST, THIRD TRI
== END 2019-03-04 11:45 | disposition home or self-care (01) ==
LOC: FBPOP 09:10
PROVIDERS: ATTEND Obstetrics & Gynecology
DX: O47.03 False labor before 37 completed weeks of gestation, third trimester (principal); Z3A.31 31 weeks gestation of pregnancy
CPT/HCPCS: 59025; 81001; G0463; 99213

== ENCOUNTER → 2019-03-13 | Outpatient (CLI) | payer OTHER ==
[2019-03-13 12:44] LABS: Glucose 3 Hour, Gest 101 mg/dL
== END | disposition home or self-care (01) ==
LOC: LABWHC1 08:10
PROVIDERS: ATTEND Obstetrics & Gynecology
DX: O99.810 Abnormal glucose complicating pregnancy (principal)
CPT/HCPCS: 36415; 82951; 82952

== ENCOUNTER 2019-03-15 11:11 | Emergency (ER) | payer OTHER ==
[2019-03-15] MEDS ORDERED: SODIUM CHLORIDE 0.9% 1,000 ML IV STA (11:13)
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
[2019-03-15 11:28] VITALS: RESP 18; TEMP 98
[2019-03-15] MEDS ORDERED: ACETAMINOPHEN TAB 500 MG TAB PO STA (11:34)
[2019-03-15 11:50] LABS: Basophils % (A) 0 %; Eosinophils # (A) 0.1 k/uL (0-0.7); Eosinophils % (A) 1 %; HCT 35.1 % (34.0-46.0); Lymphocytes # (A) 1.8 k/uL (1.0-4.8); Lymphocytes % (A) 11 %; MCH 31.9 pg (25.0-35.0); MCHC 34.3 g/dL (31.0-37.0); MCV 92.9 fL (80.0-100.0); Mean Platelet Volume 7.1; Monocytes # (A) 0.7 k/uL (0-1.0); Monocytes % (A) 5 %; Neutrophils # (A) 12.9 k/uL (1.3-7.7); Neutrophils % (A) 82 %; Platelet Count 307 k/uL (150-450); RBC 3.78 m/uL (3.80-5.40); RDW 12.9 % (11.5-15.5); WBC 15.8 k/uL (3.8-10.6)
[2019-03-15 11:58] LABS: INR 0.9 (<1.2); Partial Thromboplastin Time 23.4 sec (22.0-30.0); Prothrombin Time 9.7 sec (9.0-12.0)
[2019-03-15 12:17] LABS: ALT 13 U/L (4-34); AST 22 U/L (14-36); African American GFR (CKD) >90 (>60 ml/min/1.73 sqM); Albumin 3.2 g/dL (3.5-5.0); Alcohol <10 mg/dL; Alkaline Phosphatase 93 U/L (38-126); Anion Gap 6 mmol/L; Blood Urea Nitrogen 7 mg/dL (7-17); Calcium 9.1 mg/dL (8.4-10.2); Carbon Dioxide 20 mmol/L (22-30); Chloride 109 mmol/L (98-107); Creatine Kinase 39 U/L (30-135); Glucose 102 mg/dL (74-99); Non-African American GFR(CKD) >90 (>60 ml/min/1.73 sqM); Potassium 3.6 mmol/L (3.5-5.1); Sodium 135 mmol/L (137-145); Total Bilirubin 0.3 mg/dL (0.2-1.3); Total Protein 6.3 g/dL (6.3-8.2)
[2019-03-15 12:28] LABS: Amorphous Sediment,Urine Rare /hpf; Appearance,Urine Cloudy (Clear); Bacteria,Urine Rare /hpf; Bilirubin,Urine Negative (Negative); Blood,Urine Small (Negative); Color,Urine Yellow; Glucose,Urine (UA) Negative (Negative); Ketones,Urine Negative (Negative); Leukocyte Esterase,Urine Large (Negative); Mucus,Urine Few /hpf; Nitrite,Urine Negative (Negative); Protein,Urine 1+ (Negative); RBC,Urine 15 /hpf (0-5); Specific Gravity,Urine 1.021 (1.001-1.035); Squamous Epithelial Cell,Urine 36 /hpf (0-4); Urobilinogen,Urine <2.0 mg/dL (<2.0); WBC,Urine 12 /hpf (0-5)
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
[2019-03-15 12:33] LABS: Amphetamine Screen,Urine Not Detected (NotDetected); Barbiturate Screen,Urine Not Detected (NotDetected); Benzodiazepines Screen,Urine Not Detected (NotDetected); Cocaine Screen,Urine Not Detected (NotDetected); Methadone Screen, Urine Not Detected (NotDetected); Opiate Screen,Urine Not Detected (NotDetected); Oxycodone Screen, Urine Not Detected (NotDetected); Phencyclidine Screen,Urine Not Detected (NotDetected); Tricyclic Antidepressant,Urine Not Detected (NotDetected); Urn Cannabinoid Scrn Not Detected (NotDetected)
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
[2019-03-15 13:25] VITALS: BP 135/77; PULSE 92
== END 2019-03-15 13:24 | disposition home or self-care (01) ==
LOC: EC 11:11
DX: O9A.213 Injury, poisoning and certain other consequences of external causes complicating pregnancy, third trimester (principal); R10.9 Unspecified abdominal pain; M54.2 Cervicalgia; R51 Headache; O99.613 Diseases of the digestive system complicating pregnancy, third trimester; J45.909 Unspecified asthma, uncomplicated; O99.343 Other mental disorders complicating pregnancy, third trimester; F41.9 Anxiety disorder, unspecified; O99.333 Smoking (tobacco) complicating pregnancy, third trimester; F17.200 Nicotine dependence, unspecified, uncomplicated; Z88.5 Allergy status to narcotic agent; Z91.048 Other nonmedicinal substance allergy status; Z79.899 Other long term (current) drug therapy; Z98.890 Other specified postprocedural states; V47.6XXA Car passenger injured in collision with fixed or stationary object in traffic accident, initial encounter; Y92.410 Unspecified street and highway as the place of occurrence of the external cause; Z3A.34 34 weeks gestation of pregnancy
CPT/HCPCS: 36415; 70450; 71045; 72125; 80053; 80306; 80320; 81001; 82550; 84484; 85025; 85610; 85730; 86850; 86900; 86901; 93005; 96360; 99285

== ENCOUNTER 2019-03-15 13:32 | Outpatient (CLI) | payer OTHER ==
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
[2019-03-15] MEDS ORDERED: ACETAMINOPHEN TAB 500 MG TAB PO PRN (16:23)
[2019-03-15 17:39] VITALS: BP 122/88; PULSE 109; RESP 15; TEMP 97.7
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
== END 2019-03-15 17:15 | disposition home or self-care (01) ==
LOC: FBPOP 13:32
PROVIDERS: ATTEND Obstetrics & Gynecology
DX: O99.89 Other specified diseases and conditions complicating pregnancy, childbirth and the puerperium (principal); G89.11 Acute pain due to trauma; Z3A.34 34 weeks gestation of pregnancy
CPT/HCPCS: 59025; 76805; G0463; 99213

== ENCOUNTER 2019-03-21 14:14 | Outpatient (CLI) | payer OTHER ==
[2019-03-21 14:54] LABS: Glucose,Whole Blood 122 mg/dL (75-99)
[2019-03-21 23:48] LABS: Hemoglobin A1C 5.9 % (4.0-6.0)
--- NOTE | 2019-04-21 18:00 | P.MSEPDOC ---
Presenting Problems - Arrival Data Date of Arrival on Unit: 03/21/19 Time of Arrival on Unit: 14:14 Mode of Transport: Ambulatory - Complaint OB-Reason for Admission/Chief Complaint: Other Comment: new diagnosis GDM, general malaise Medical History - Information : 7 Para: 2 Term: 1 : 1 Abortions: Spontaneous or Elective: 4 Number of Living Children: 2 - Gestational Age Gestational Age by JOHN (wks/days): 34 Weeks and 2 Days - History Complications: GDM, Smoker Review of Systems - Review of Systems Constitutional: No problems Breast: No problems ENT: No problems Cardiovascular: No problems Respiratory: No problems Gastrointestinal: No problems Genitourinary: No problems Musculoskeletal: No problems Neurological: No problems Skin: No problems Medical Screen Scoring (Pre) - Level of Risk - Baby A Level of Risk - Baby A: N/A Physician Notification (Pre) - Notification Comment Comment: sent from office with script cbg, a1c, NST Disposition - Disposition OB Disposition: Triage Discharge Date: 03/21/19 Discharge Time: 16:45 I agree with the RN Medical Screening Exam: Yes Risk & Benefit of care provided described in d/c instruction: Yes Diagnosis: GESTATIONAL DIABETES MELLITUS IN , DIET CONTROLLED
== END 2019-03-21 16:45 | disposition home or self-care (01) ==
LOC: FBPOP 14:14
PROVIDERS: ATTEND Obstetrics & Gynecology
DX: Z34.83 Encounter for supervision of other normal pregnancy, third trimester (principal)
CPT/HCPCS: 59025; 83036; 84112

== ENCOUNTER 2019-03-22 09:31 | Observation (INO) | payer OTHER ==
[2019-03-22] MEDS ORDERED: LACTATED RINGERS 1,000 ML IV SCH ×2 (10:30→15:00)
[2019-03-22 11:11] LABS: Basophils # (A) 0.1 k/uL (0-0.2); Basophils % (A) 1 %; Eosinophils # (A) 0.1 k/uL (0-0.7); Eosinophils % (A) 1 %; HCT 38.1 % (34.0-46.0); HGB 12.5 gm/dL (11.4-16.0); Lymphocytes % (A) 16 %; MCH 31.4 pg (25.0-35.0); MCHC 32.8 g/dL (31.0-37.0); MCV 95.6 fL (80.0-100.0); Mean Platelet Volume 7.3; Monocytes # (A) 0.6 k/uL (0-1.0); Monocytes % (A) 4 %; Neutrophils # (A) 9.9 k/uL (1.3-7.7); Neutrophils % (A) 76 %; Platelet Count 336 k/uL (150-450); RBC 3.99 m/uL (3.80-5.40); RDW 13.3 % (11.5-15.5)
[2019-03-22 11:13] LABS: ALT 14 U/L (4-34); AST 23 U/L (14-36); African American GFR (CKD) >90 (>60 ml/min/1.73 sqM); Albumin 3.4 g/dL (3.5-5.0); Alkaline Phosphatase 102 U/L (38-126); Anion Gap 7 mmol/L; Blood Urea Nitrogen 8 mg/dL (7-17); Calcium 9.2 mg/dL (8.4-10.2); Carbon Dioxide 20 mmol/L (22-30); Chloride 108 mmol/L (98-107); Glucose 88 mg/dL (74-99); Non-African American GFR(CKD) >90 (>60 ml/min/1.73 sqM); Potassium 3.9 mmol/L (3.5-5.1); Sodium 135 mmol/L (137-145); Total Bilirubin 0.3 mg/dL (0.2-1.3); Total Protein 6.2 g/dL (6.3-8.2)
[2019-03-22] MEDS ORDERED: ACETAMINOPHEN TAB 500 MG TAB PO PRN (14:40)
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
[2019-03-22 18:01] VITALS: RESP 16
[2019-03-22 20:02] LABS: Glucose,Whole Blood 147 mg/dL (75-99)
[2019-03-22] MEDS ORDERED: QUEtiapine 50 MG TAB PO SCH (21:00)
[2019-03-22 21:14] VITALS: BP 143/80; PULSE 95; TEMP 97.2
[2019-03-22 22:07] LABS: Glucose,Whole Blood 172 mg/dL (75-99)
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
[2019-03-23] MEDS ORDERED: LORATADINE 10 MG TAB PO SCH (09:00)
[2019-03-23] MEDS ORDERED: QUEtiapine 50 MG TAB PO SCH (09:00)
[2019-03-23] MEDS ORDERED: ACYCLOVIR 200 MG CAP PO SCH (09:00)
== END 2019-03-22 22:30 | disposition home or self-care (01) ==
LOC: FBPOP 09:31 → 4FBP 13:53
PROVIDERS: ADMIT Obstetrics & Gynecology; ATTEND Obstetrics & Gynecology
DX: R55 Syncope and collapse (principal); O24.419 Gestational diabetes mellitus in pregnancy, unspecified control; O99.333 Smoking (tobacco) complicating pregnancy, third trimester; F17.200 Nicotine dependence, unspecified, uncomplicated; O99.513 Diseases of the respiratory system complicating pregnancy, third trimester; S06.0X9A Concussion with loss of consciousness of unspecified duration, initial encounter; Z3A.34 34 weeks gestation of pregnancy; O9A.213 Injury, poisoning and certain other consequences of external causes complicating pregnancy, third trimester; Z82.49 Family history of ischemic heart disease and other diseases of the circulatory system; M79.7 Fibromyalgia; J45.20 Mild intermittent asthma, uncomplicated; V89.2XXA Person injured in unspecified motor-vehicle accident, traffic, initial encounter; Y92.410 Unspecified street and highway as the place of occurrence of the external cause
CPT/HCPCS: 59025; 96360; 96361; 82731; 80053; 84443; 85025; 87502; G0463; G0378; 99214

== ENCOUNTER 2019-03-30 17:52 | Outpatient (CLI) | payer OTHER ==
[2019-03-30] MEDS ORDERED: LACTATED RINGERS 1,000 ML IV SCH (18:45)
[2019-03-30 18:57] LABS: Appearance,Urine Cloudy (Clear); Bacteria,Urine Rare /hpf; Bilirubin,Urine Negative (Negative); Blood,Urine Small (Negative); Color,Urine Yellow; Glucose,Urine (UA) Negative (Negative); Ketones,Urine 1+ (Negative); Leukocyte Esterase,Urine Moderate (Negative); Mucus,Urine Many /hpf; Nitrite,Urine Negative (Negative); Protein,Urine 2+ (Negative); RBC,Urine 13 /hpf (0-5); Specific Gravity,Urine 1.033 (1.001-1.035); Squamous Epithelial Cell,Urine 8 /hpf (0-4); WBC,Urine 9 /hpf (0-5)
[2019-03-30 19:04] VITALS: BP 123/81; PULSE 105; RESP 16; TEMP 98.3
--- NOTE | 2019-03-31 06:00 | P.MSEPDOC ---
Presenting Problems - Arrival Data Date of Arrival on Unit: 03/30/19 Time of Arrival on Unit: 17:50 Mode of Transport: Ambulatory - Complaint OB-Reason for Admission/Chief Complaint: Observation/Evaluation Medical History - Information : 7 Para: 2 Term: 2 : 0 Abortions: Spontaneous or Elective: 4 Number of Living Children: 2 - Gestational Age Gestational Age by JOHN (wks/days): 35 Weeks and 4 Days Review of Systems - Review of Systems Constitutional: No problems Breast: No problems ENT: No problems Cardiovascular: No problems Respiratory: No problems Gastrointestinal: Diarrhea Genitourinary: No problems Musculoskeletal: No problems Neurological: No problems Skin: No problems Vital Signs - Temperature Temperature: 98.3 F Temperature Source: Temporal Artery Scan - Pulse Right Sitting Pulse Rate: 105 Pulse Assessment Method: Automatic Cuff - Respirations Respiratory Rate: 16 Oxygen Delivery Method: Room Air O2 Sat by Pulse Oximetry: 97 - Blood Pressure Right Arm Blood Pressure: 123/81 Blood Pressure Mean: 95 Blood Pressure Source: Automatic Cuff Medical Screen Scoring (Pre) - Cervical Exam Dilation: 1-3 cm = 1 Membranes: Intact - Uterine Contractions Frequency: N/A - Maternal Vital Signs Maternal Temperature: N/A Maternal Blood Pressure: N/A Signs of Preeclampsia: N/A Maternal Respirations: N/A - Assessment - Baby A Baseline FHR: 135 Heart Rate - NICHD Category: Category I (Normal) = 0 NST: Reactive Position: N/A Station: N/A - Total Score - Baby A Total Score - Baby A: 1 - Total Score - Baby B Total Score - Baby B: 1 - Total Score - Baby C Total Score - Baby C: 1 - Level of Risk - Baby A Level of Risk - Baby A: Low (0-5) - Level of Risk - Baby B Level of Risk - Baby B: Low (0-5) - Level of Risk - Baby C Level of Risk - Baby C: Low (0-5) Physician Notification (Pre) - Physician Notified Physician Notified Date: 03/30/19 Physician Notified Time: 18:39 New Order Received: Yes (urinalysis, and IV fluids) Disposition - Disposition OB Disposition: Triage Discharge Date: 03/30/19 Discharge Time: 20:13 I agree with the RN Medical Screening Exam: Yes Risk & Benefit of care provided described in d/c instruction: Yes Diagnosis: FALSE LABOR BEFORE 37 COMPLETED WEEKS OF GEST, THIRD TRI
== END 2019-03-30 20:13 | disposition home or self-care (01) ==
LOC: FBPOP 17:52
PROVIDERS: ATTEND Obstetrics & Gynecology
DX: O47.03 False labor before 37 completed weeks of gestation, third trimester (principal); Z3A.35 35 weeks gestation of pregnancy
CPT/HCPCS: 59025; 96360; 81001; 87086; G0463; 99214

== ENCOUNTER 2019-03-31 12:37 | Outpatient (CLI) | payer OTHER ==
[2019-03-31 13:05] LABS: Basophils # (A) 0.1 k/uL (0-0.2); Basophils % (A) 1 %; Eosinophils # (A) 0.1 k/uL (0-0.7); Eosinophils % (A) 1 %; HCT 38.7 % (34.0-46.0); HGB 13.6 gm/dL (11.4-16.0); Lymphocytes # (A) 1.8 k/uL (1.0-4.8); Lymphocytes % (A) 19 %; MCH 33.2 pg (25.0-35.0); MCV 94.6 fL (80.0-100.0); Mean Platelet Volume 7.4; Monocytes # (A) 0.5 k/uL (0-1.0); Monocytes % (A) 5 %; Neutrophils # (A) 6.9 k/uL (1.3-7.7); Neutrophils % (A) 72 %; Platelet Count 289 k/uL (150-450); RBC 4.09 m/uL (3.80-5.40); RDW 13.6 % (11.5-15.5); WBC 9.5 k/uL (3.8-10.6)
[2019-03-31 13:22] LABS: ALT 19 U/L (4-34); AST 32 U/L (14-36); African American GFR (CKD) >90 (>60 ml/min/1.73 sqM); Blood Urea Nitrogen 9 mg/dL (7-17); LDH 353 U/L (313-618); Non-African American GFR(CKD) >90 (>60 ml/min/1.73 sqM); Uric Acid 8.2 mg/dL (3.7-7.4)
[2019-03-31 13:29] LABS: Appearance,Urine Cloudy (Clear); Bilirubin,Urine 1+ (Negative); Blood,Urine Small (Negative); Color,Urine Dark Yellow; Glucose,Urine (UA) Negative (Negative); Ketones,Urine 1+ (Negative); Leukocyte Esterase,Urine Moderate (Negative); Mucus,Urine Many /hpf; Nitrite,Urine Negative (Negative); Protein,Urine 2+ (Negative); RBC,Urine 17 /hpf (0-5); Squamous Epithelial Cell,Urine 26 /hpf (0-4); WBC,Urine 25 /hpf (0-5)
[2019-03-31 13:30] LABS: Specific Gravity,Urine 1.048 (1.001-1.035)
[2019-03-31 14:34] LABS: Glucose,Whole Blood 103 mg/dL (75-99)
== END 2019-03-31 16:00 | disposition home or self-care (01) ==
LOC: FBPOP 12:37
PROVIDERS: ATTEND Obstetrics & Gynecology
DX: O14.90 Unspecified pre-eclampsia, unspecified trimester (principal); Z3A.00 Weeks of gestation of pregnancy not specified
CPT/HCPCS: 59025; 81001; 82565; 82570; 83615; 84156; 84450; 84460; 84520; 84550; 85025

== ENCOUNTER 2019-04-12 10:46 | Inpatient (IN) | payer OTHER ==
[2019-04-12 11:52] LABS: Appearance,Urine Clear (Clear); Bacteria,Urine Rare /hpf; Bilirubin,Urine Negative (Negative); Blood,Urine Small (Negative); Color,Urine Yellow; Glucose,Urine (UA) Negative (Negative); Ketones,Urine 1+ (Negative); Leukocyte Esterase,Urine Moderate (Negative); Mucus,Urine Many /hpf; Nitrite,Urine Negative (Negative); PH, Urine 6.5 (5.0-8.0); Protein,Urine 1+ (Negative); RBC,Urine 8 /hpf (0-5); Specific Gravity,Urine 1.026 (1.001-1.035); Squamous Epithelial Cell,Urine 5 /hpf (0-4); Urobilinogen,Urine <2.0 mg/dL (<2.0); WBC,Urine 4 /hpf (0-5)
[2019-04-12 11:57] LABS: Basophils # (A) 0.1 k/uL (0-0.2); Basophils % (A) 0 %; Eosinophils # (A) 0.1 k/uL (0-0.7); Eosinophils % (A) 1 %; HCT 38.4 % (34.0-46.0); HGB 12.5 gm/dL (11.4-16.0); Lymphocytes # (A) 2.2 k/uL (1.0-4.8); Lymphocytes % (A) 17 %; MCHC 32.5 g/dL (31.0-37.0); MCV 95.4 fL (80.0-100.0); Mean Platelet Volume 7.5; Monocytes # (A) 0.6 k/uL (0-1.0); Monocytes % (A) 5 %; Neutrophils # (A) 10.2 k/uL (1.3-7.7); Neutrophils % (A) 76 %; Platelet Count 298 k/uL (150-450); RBC 4.03 m/uL (3.80-5.40); RDW 13.5 % (11.5-15.5); WBC 13.4 k/uL (3.8-10.6)
[2019-04-12 12:05] LABS: ALT 13 U/L (4-34); AST 23 U/L (14-36); African American GFR (CKD) >90 (>60 ml/min/1.73 sqM); Blood Urea Nitrogen 10 mg/dL (7-17); LDH 313 U/L (313-618); Non-African American GFR(CKD) >90 (>60 ml/min/1.73 sqM); Uric Acid 5.6 mg/dL (3.7-7.4)
[2019-04-12] MEDS: LACTATED RINGERS 1,000 ML IV SCH ×2 (13:15→18:20)
[2019-04-12] MEDS ORDERED: METHYLERGONOVINE 0.2 MG/ML 1 ML AMP IM PRN (13:27)
[2019-04-12] MEDS ORDERED: LIDOCAINE 0.5% (PF) 5 MG/ML (50 ML SDV) SQ PRN (13:27)
[2019-04-12] MEDS ORDERED: TERBUTALINE 1 MG/ML VIAL SQ PRN (13:27)
[2019-04-12] MEDS ORDERED: CARBOPROST TROMETHAMINE 250 MCG/ML 1 ML AMP IM PRN (13:27)
[2019-04-12] MEDS ORDERED: OXYTOCIN 10 UNIT/ML 1 ML VIAL IM PRN (13:27)
[2019-04-12] MEDS ORDERED: OXYTOCIN 30 UNITS/500 ML NS 30 UNIT in SALINE 1 500ML.BAG IV SCH (13:30)
[2019-04-12 14:02] LABS: INR 1.2 (<1.2); Partial Thromboplastin Time 26.1 sec (22.0-30.0); Prothrombin Time 11.8 sec (9.0-12.0)
[2019-04-12] MEDS: BUTORPHANOL 1 MG/ML 1 ML VIAL IV PRN ×2 (15:20→17:23)
[2019-04-12] MEDS ORDERED: ROPIVACAINE 5MG/ML 20ML VIAL ONE (18:19)
[2019-04-12] MEDS ORDERED: fentaNYL (PF) 50 MCG/ML 5 ML AMP ONE (18:19)
[2019-04-12] MEDS ORDERED: SODIUM CHLORIDE 0.9% 100 ML BAG ONE (18:19)
[2019-04-12] MEDS ORDERED: ROPIVACAINE 100 MG, fentaNYL (PF) 200 MCG in SODIUM CHLORIDE 0.9% 76 ML EPIDURAL ONE (18:54)
[2019-04-12] MEDS ORDERED: IBUPROFEN 600 MG TAB PO PRN (19:55)
[2019-04-12] MEDS ORDERED: LANOLIN CREAM 5 GM TUBE TOPICAL PRN (19:55)
[2019-04-12] MEDS ORDERED: WITCH HAZEL 1 EACH MED..PAD TOPICAL PRN (19:55)
[2019-04-12] MEDS ORDERED: ACETAMINOPHEN TAB 325 MG TAB PO PRN (19:55)
[2019-04-12] MEDS ORDERED: BENZOCAINE/MENTHOL SPRAY 1 GM/SPRAY AEROSOL TOPICAL PRN (19:55)
[2019-04-12] MEDS ORDERED: SIMETHICONE 80 MG CHEWABLE PO PRN (19:55)
[2019-04-12] MEDS ORDERED: ZOLPIDEM 5 MG TAB PO PRN (19:55)
[2019-04-12] MEDS ORDERED: diphenhydrAMINE 50 MG/ML 1 ML VIAL IVP PRN ×2 (19:55)
[2019-04-12] MEDS ORDERED: HYDROCORTISONE 2.5% RECTAL CREAM 30 GM TUBE RECTAL PRN (19:55)
[2019-04-12] MEDS ORDERED: diphenhydrAMINE 25 MG CAP PO PRN (19:55)
[2019-04-12] MEDS ORDERED: diphenhydrAMINE 50 MG CAP PO PRN (19:55)
[2019-04-12] MEDS ORDERED: OXYTOCIN 20 UNITS/1000 ML NS 1,000 ML IV SCH (20:00)
--- NOTE | 2019-04-12 20:00 | P.HPOB ---
History of Present Illness H&P Date: 04/12/19 Chief Complaint: Intrauterine at term: Gestational hypertension Maria Luisa is a 33-year-old female 37 weeks 1 day gestation who arrived to my office today for her normal visit and was noted to have elevated blood pressure. She was sent to labor and delivery where she had multiple more blood pressures that were above 140 or above 90 and therefore in induction of labor has been initiated. Her course had been, complicated by gestational diabetes as well for which she was type AI diet controlled. She's had contractions and pain since approximately 32-33 weeks but has made minimal change until this last visit. She is dilated to approximately 3 cm 80% effaced -3 station artificial rupture membranes was performed and clear fluid is noted. Category 1 tracings noted and she is having irregular contractions at this time. She has been taking acyclovir over the latter part of the due to history of HSV. She has no lesions or prodromal symptoms at this time. She anticipates use of an epidural for analgesia. All other questions are answered for her at this time. 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, scoliosis History of Any Multi-Drug Resistant Organisms: None Reported Past Surgical History: Hernia Repair, Orthopedic Surgery Additional Past Surgical History / Comment(s): right finger amputation, bilateral knee surgeries, 2 cervical LEEP procedures Past Anesthesia/Blood Transfusion Reactions: No Reported Reaction Past Psychological History: Anxiety Smoking Status: Current every day smoker Past Alcohol Use History: None Reported Past Drug Use History: None Reported - Past Family History Father Family Medical History: Coronary Artery Disease (CAD) Medications and Allergies Home Medications Medication Instructions Recorded Confirmed Type Pnv,Calcium 72/Iron/Folic Acid 1 tab PO DAILY 01/03/18 04/12/19 History [ Plus Tablet] Acyclovir 400 mg PO DAILY 11/28/18 04/12/19 History Loratadine [Claritin] 1 tab PO DAILY 03/04/19 04/12/19 History QUEtiapine [SEROquel] 1 tab PO DAILY 03/04/19 04/12/19 History Acetaminophen [Tylenol] 650 mg PO Q4HR PRN 03/31/19 04/12/19 History Allergies Allergy/AdvReac Type Severity Reaction Status Date / Time adhesive Allergy Swelling Verified 04/12/19 11:08 codeine Allergy Rash/Hives Verified 04/12/19 11:08 Exam Osteopathic Statement: *. No significant issues noted on an osteopathic structural exam other than those noted in the History and Physical/Consult. Vital Signs Temp Pulse Resp BP 04/12/19 12:55 96.3 F L 121 H 18 141/81 Intake and Output 04/12/19 04/12/19 04/12/19 06:59 14:59 22:59 Other: # Voids 2 Weight 101.151 kg - OBG Physical Exam Breast: both: normal (no masses) Abdomen: bowel sounds normal, no diffuse tenderness, no bruit present, no guar ding noted, no hepatomegaly, no splenomegaly, no mass Vulva: both: normal Vagina: normal moisture, no discharge Cervix: no lesion, no discharge Uterus: normal size, normal contour Adnexa: both: normal Anus/Rectum: normal perianal skin, no rectal mass, no hemorrhoids, heme negative Results Result Diagrams: 04/12/19 11:38 04/12/19 11:38 Abnormal Lab Results - Last 24 Hours (Table) 04/12/19 04/12/19 04/12/19 Range/Units 11:12 11:38 13:15 WBC 13.4 H (3.8-10.6) k/uL Neutrophils # 10.2 H (1.3-7.7) k/uL INR 1.2 H (<1.2) Urine Protein 1+ H (Negative) Urine Ketones 1+ H (Negative) Urine Blood Small H (Negative) Ur Leukocyte Esterase Moderate H (Negative) Urine RBC 8 H (0-5) /hpf Ur Squamous Epith Cells 5 H (0-4) /hpf Urine Bacteria Rare H (None) /hpf Urine Mucus Many H (None) /hpf
--- NOTE | 2019-04-12 20:01 | P.PROBDLV ---
Vaginal Delivery Note - . Vaginal Delivery Note: Maria Luisa progressed complete and pushed was continuous vaginal delivery of a viable female over a second degree perineal laceration. Following deliver the head from left occiput anterior position anterior posterior shoulders were easily delivered with gentle downward upper traction followed by the remainder the baby. Mouth nares were then bulb suctioned and the day was placed on mother's abdomen. Umbilical cord was allowed to pulsate for 30 seconds prior to clamping cutting. Nursery personnel was present and assumed care. Placenta was then delivered intact and Pitocin was added to the IV. Second-degree midline laceration was then repaired with 3-0 Vicryl following 1% Xylocaine for analgesia. scores were 9 and 9 at one and 5 minutes respectively and the weight is 7 lbs. 1 oz. Both mother and baby are stable following delivery.
[2019-04-12] MEDS: HYDROcodone/APAP 5-325MG 1 EACH TAB PO PRN (20:14)
[2019-04-12] MEDS: SENNOSIDES-DOCUSATE SODIUM 1 EACH TAB PO SCH (21:33)
[2019-04-13] MEDS: HYDROcodone/APAP 5-325MG 1 EACH TAB PO PRN ×6 (00:03→21:07)
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
[2019-04-13 07:53] LABS: Basophils % (A) 0 %; Eosinophils # (A) 0.1 k/uL (0-0.7); Eosinophils % (A) 0 %; HCT 31.7 % (34.0-46.0); HGB 10.6 gm/dL (11.4-16.0); Lymphocytes # (A) 2.2 k/uL (1.0-4.8); Lymphocytes % (A) 16 %; MCH 32.1 pg (25.0-35.0); MCHC 33.3 g/dL (31.0-37.0); MCV 96.3 fL (80.0-100.0); Mean Platelet Volume 7.3; Monocytes # (A) 0.6 k/uL (0-1.0); Monocytes % (A) 4 %; Neutrophils # (A) 11.1 k/uL (1.3-7.7); Neutrophils % (A) 78 %; Platelet Count 267 k/uL (150-450); RDW 13.6 % (11.5-15.5); WBC 14.3 k/uL (3.8-10.6)
[2019-04-13] MEDS ORDERED: QUEtiapine 50 MG TAB PO SCH (09:00)
[2019-04-13] MEDS: SENNOSIDES-DOCUSATE SODIUM 1 EACH TAB PO SCH ×2 (09:06→21:07)
--- NOTE | 2019-04-13 09:16 | XR ---
AP pelvis HISTORY: Trauma and pain Single frontal view of the pelvis submitted. Bone mineralization, joint spaces and alignment are maintained. Overlying soft tissue obscures detail in the upper pelvis. IMPRESSION: No radiographically apparent fracture or dislocation, follow-up as indicated.
[2019-04-13 09:42] VITALS: BP 134/68; PULSE 92; RESP 18; TEMP 98.2
== END 2019-04-13 21:30 | disposition home or self-care (01) | DRG 807 ==
LOC: FBPOP 10:46 → 4FBP 12:43
PROVIDERS: ADMIT Obstetrics & Gynecology; ATTEND Obstetrics & Gynecology
PROC: 10E0XZZ Delivery of Products of Conception, External Approach (ICD-10-PCS; principal; 2019-04-12)
PROC: 0KQM0ZZ Repair Perineum Muscle, Open Approach (ICD-10-PCS; 2019-04-12)
DX: O13.4 Gestational [pregnancy-induced] hypertension without significant proteinuria, complicating childbirth (principal); Z37.0 Single live birth; O60.14X0 Preterm labor third trimester with preterm delivery third trimester, not applicable or unspecified; O70.1 Second degree perineal laceration during delivery; O99.334 Smoking (tobacco) complicating childbirth; O24.420 Gestational diabetes mellitus in childbirth, diet controlled; O99.344 Other mental disorders complicating childbirth; O99.52 Diseases of the respiratory system complicating childbirth; F41.9 Anxiety disorder, unspecified; Z3A.37 37 weeks gestation of pregnancy; F17.200 Nicotine dependence, unspecified, uncomplicated; J45.909 Unspecified asthma, uncomplicated; M41.9 Scoliosis, unspecified; M79.7 Fibromyalgia; Z82.49 Family history of ischemic heart disease and other diseases of the circulatory system
CPT/HCPCS: 59025; 72170; 81001; 82565; 82570; 83615; 84156; 84450; 84460; 84520; 84550; 85025; 85610; 85730; 86850; 86900; 86901

== ENCOUNTER → 2019-05-26 | Outpatient (CLI) | payer OTHER ==
[2019-05-26 15:41] LABS: Basophils % (A) 1 %; Eosinophils % (A) 0 %; HCT 40.7 % (34.0-46.0); HGB 13.3 gm/dL (11.4-16.0); Lymphocytes # (A) 2.8 k/uL (1.0-4.8); Lymphocytes % (A) 36 %; MCH 31.9 pg (25.0-35.0); MCHC 32.7 g/dL (31.0-37.0); MCV 97.6 fL (80.0-100.0); Mean Platelet Volume 6.7; Monocytes # (A) 0.4 k/uL (0-1.0); Monocytes % (A) 5 %; Neutrophils # (A) 4.3 k/uL (1.3-7.7); Neutrophils % (A) 56 %; Platelet Count 330 k/uL (150-450); RBC 4.17 m/uL (3.80-5.40); RDW 13.4 % (11.5-15.5); WBC 7.7 k/uL (3.8-10.6)
== END | disposition home or self-care (01) ==
LOC: LABPAT 14:54
PROVIDERS: ATTEND Obstetrics & Gynecology
DX: Z01.812 Encounter for preprocedural laboratory examination (principal)
CPT/HCPCS: 36415; 85025

== ENCOUNTER → 2019-05-29 | Day surgery (SDC) | payer OTHER ==
[2019-05-25 10:06] VITALS: BMI 31.3
--- NOTE | 2019-05-26 17:51 | P.HPOB ---
History of Present Illness H&P Date: 05/26/19 Chief Complaint: Family planning: Vaginal cyst Maria Luisa is a 33-year-old female who has completed her family planning and desires permanent sterilization. Risks/benefits/alternatives to this procedure were reviewed with the patient in detail and all questions have been answered for her prior to proceeding to the operative. She is aware this is designed to be a permanent procedure and that there is is a risk of failure probably 4 per thousand. All other questions are answered for her prior to proceeding to the operative room. She is also concerned that she may have endometriosis and I did agree that if there were a minimal amount of endometrial implants we may be able to electrocoagulate them wall she was having the surgery but if there was diffuse disease then we would take pictures and refer her to pelvic pain. She also has a 1 cm cyst in her vagina on the right side does not feel like a Bartholin's cyst it is brown circumscribed it was slightly drained by Dr. Phelan in the office but we will reevaluate and determined the house may be needed all she is asleep and comfortable. Otherwise on physical exam vital signs are stable and afebrile. Heart regular, lungs clear, extremities without pain. Abdomen soft and nontender. Positive bowel sounds are noted. Assessment family planning with vaginal cyst Plan left scopic tubal occlusion with Filshie clips and evaluation of vaginal cyst Past Medical History Past Medical History: Asthma, Fibromyalgia, Musculoskeletal Disorder Additional Past Medical History / Comment(s): Endometriosis, Scoliosis. History of Any Multi-Drug Resistant Organisms: None Reported Past Surgical History: Hernia Repair, Orthopedic Surgery Additional Past Surgical History / Comment(s): Right finger amputation, bilateral knee surgeries, 2 cervical LEEP procedures, laproscopies. Past Anesthesia/Blood Transfusion Reactions: Previous Problems w/ Anesthesia Additional Past Anesthesia/Blood Transfusion Reaction / Comment(s): Woke up during surgery X1. Past Psychological History: Anxiety, Depression Smoking Status: Current every day smoker Past Alcohol Use History: None Reported Additional Past Alcohol Use History / Comment(s): Has been smoking 22 yrs, 1/2 PPD. Past Drug Use History: Marijuana Additional Drug Use History / Comment(s): Marijuana use once daily. Aware no use 24 hrs prior to procedure. - Past Family History Mother Family Medical History: Cancer Father Family Medical History: Coronary Artery Disease (CAD) Medications and Allergies Home Medications Medication Instructions Recorded Confirmed Type Pnv,Calcium 72/Iron/Folic Acid 1 tab PO DAILY 01/03/18 05/25/19 History [ Plus Tablet] Acyclovir 400 mg PO DAILY 11/28/18 05/25/19 History Loratadine [Claritin] 1 tab PO DAILY 03/04/19 05/25/19 History QUEtiapine [SEROquel] 50 mg PO HS 03/04/19 05/25/19 History Venlafaxine HCl [Effexor] 37.5 mg PO QAM 05/25/19 05/25/19 History lamoTRIgine [LaMICtal] 25 mg PO QAM 05/25/19 05/25/19 History Allergies Allergy/AdvReac Type Severity Reaction Status Date / Time adhesive Allergy Swelling Verified 05/25/19 09:50 codeine Allergy Rash/Hives Verified 05/25/19 09:50 Exam Osteopathic Statement: *. No significant issues noted on an osteopathic structural exam other than those noted in the History and Physical/Consult.
[~2019-05-29] MED LIST: BUPIVACAINE (PF) 0.25% 30 ML VIAL SQ ONE; DEXAMETHASONE SOD PHOSPHATE 10 MG/ML 1 ML VIAL IV ONE; GLYCOPYRROLATE 0.2 MG/ML 2 ML VIAL ONE; HYDROcodone/APAP 5-325MG 1 EACH TAB PO ONE; KETOROLAC 30 MG/ML 1 ML VIAL ONE; LACTATED RINGERS 1,000 ML IV ONE; LACTATED RINGERS 1,000 ML IV SCH; LIDOCAINE 1% (10MG/ML) FOR IV START INTRADERMA PRN; LIDOCAINE 1% INJ 10MG/ML (20 ML MDV) ONE; MIDAZOLAM 2 MG/2 ML VIAL IV PRN; MIDAZOLAM 2 MG/2 ML VIAL ONE; NEOSTIGMINE 1 MG/ML 10 ML VIAL ONE; ONDANSETRON 4 MG/2 ML VIAL IVP ONE; PROPOFOL 10 MG/ML 20 ML VIAL IV ONE; Pre Op ABX Message 1 EACH MISC MISCELLANE ONE; ROCURONIUM BROMIDE 10 MG/ML 5 ML VIAL IV ONE; SUCCINYLCHOLINE CHLORIDE 100 MG/5 ML SYR IV ONE; fentaNYL (PF) 50 MCG/ML 2 ML AMP IVP PRN; fentaNYL (PF) 50 MCG/ML 2 ML AMP ONE; metroNIDAZOLE-NS PMX 500 MG in SALINE 1 100ML.BAG IVPB ONE
[2019-05-29 06:50] VITALS: RESP 16
[2019-05-29] MEDS: HYDROmorphone 0.5 MG/0.5 ML SYRINGE IVP PRN ×4 (08:15→08:39)
--- NOTE | 2019-05-29 08:18 | P.OP ---
Date of Procedure: 05/29/19 Preoperative Diagnosis: Family planning and vaginal wall cyst Postoperative Diagnosis: Same: Possible perforation of uterus with sound, could not clearly see any perforation however Procedure(s) Performed: Left scopic tubal occlusion with Filshie clips: Excision of vaginal wall cyst Anesthesia: MANDY Surgeon: Lukas Campa Estimated Blood Loss (ml): 5 Urine output (ml): 20 Pathology: other (Vaginal wall cyst) Condition: stable Disposition: same day Operative Findings: Left fallopian tube virtually gone clip was placed near distal end. Initial sounding was 12 cm however uterus did not appear that large once camera was in. No perforation could be visualized despite maneuvering of the uterus, no active bleeding is noted. Most of vaginal wall cyst felt in the office had Haroldo dissipated. Remainder was excised Description of Procedure: Patient was taken to the operating suite where a general anesthetic was found be adequate. She was prepped and draped in the normal sterile fashion placed in dorsal lithotomy position. Initially a speculum was inserted into the vagina and into lip cervix identified and grasped without clamp. Uterus was then sounded to 12 cm and uterine manipulator was inserted then without difficulty. Red rubber catheter was used to drain the bladder of urine. All other incidents were then removed and gloves were changed and attention was turned to the abdominal portion of the procedure. 2 mL of quarter percent Marcaine was then injected periumbilically and through this injected anesthetic a 5 mm skin incision was made. Through this incision, under direct visualization with an optical trocar and sleeve the camera was inserted. Once peritoneal placement was assured gas left fully insufflate the abdomen and patient was placed in steep Trendelenburg position. A second 8 mm skin incision was then made 3 cm above the pubic symphysis in the midline and through this incision an 8 mm trocar and sleeve were inserted again under direct visualization. Uterus was then elevated and observations pelvis were then done. No evidence of endometriosis is visualized and no active bleeding is noted. I cannot visualize any perforation on any area of the uterine wall. But it does not appear to be 12 cm necessarily either. One dose of IV Flagyl be provided as precaution. This was completed first the left fallopian tube than the right fallopian tube had a Filshie clip applied the right fallopian tube was almost completely either gone or very small so the clip was applied closer to the fimbriated end. Once completed incidents removed gas. Pelvic the abdomen. 5 deep breaths were provided during this process. 4-0 Vicryl was then used to close incision subcuticularly. The remaining 8 mL of quarter percent Marcaine was then injected around these incisions. Once this was completed attention was returned to the vagina. The uterine manipulator was then removed and the cervix and the vaginal wall cyst was palpated. It was at least 1-2 cm in my office and now palpates to about half a centimeter. 10 blade was then used to incise the vagina as the boundaries of the cyst were delineated by Allis clamps. This area was excised and sent to pathology for evaluation. Once this was completed 3-0 Vicryl was used to reapproximate the incision and no cyst wall is palpated this point. All incidents were then removed. Sponge, lap, needle counts were all correct 2. Patient was then taken to the recovery room in stable and satisfactory condition. Plan - Discharge Summary Discharge Rx Participant: Yes New Discharge Prescriptions: New Ibuprofen [Motrin] 600 mg PO Q6HR PRN #30 tab PRN Reason: Pain HYDROcodone/APAP 5-325MG [[place] 5-325] 1 tab PO Q4HR PRN #30 tab PRN Reason: Pain No Action Pnv,Calcium 72/Iron/Folic Acid [ Plus Tablet] 1 tab PO DAILY Acyclovir 400 mg PO DAILY Loratadine [Claritin] 1 tab PO DAILY QUEtiapine [SEROquel] 50 mg PO HS lamoTRIgine [LaMICtal] 25 mg PO QAM Venlafaxine HCl [Effexor] 37.5 mg PO QAM Discharge Medication List Pnv,Calcium 72/Iron/Folic Acid [ Plus Tablet] 1 tab PO DAILY 01/03/18 [History] Acyclovir 400 mg PO DAILY 11/28/18 [History] Loratadine [Claritin] 1 tab PO DAILY 03/04/19 [History] QUEtiapine [SEROquel] 50 mg PO HS 03/04/19 [History] Venlafaxine HCl [Effexor] 37.5 mg PO QAM 05/25/19 [History] lamoTRIgine [LaMICtal] 25 mg PO QAM 05/25/19 [History] HYDROcodone/APAP 5-325MG [[place] 5-325] 1 tab PO Q4HR PRN #30 tab 05/29/19 [Rx] Ibuprofen [Motrin] 600 mg PO Q6HR PRN #30 tab 05/29/19 [Rx] Follow up Appointment(s)/Referral(s): Lukas Campa DO [Doctor of Osteopathic Medicine] - 2 Weeks Activity/Diet/Wound Care/Special Instructions: No heavy lifting, limit stairs and driving, and pelvic rest. If any high temperatures, heavy bleeding, or severe pain call my office
[2019-05-29 08:21] VITALS: TEMP 97.1
[2019-05-29 09:28] VITALS: BP 114/76; PULSE 66
== END ==
LOC: OR 06:21
PROVIDERS: ATTEND Obstetrics & Gynecology
DX: Z30.2 Encounter for sterilization (principal); N89.8 Other specified noninflammatory disorders of vagina; M79.7 Fibromyalgia; M41.9 Scoliosis, unspecified; J45.909 Unspecified asthma, uncomplicated; F41.9 Anxiety disorder, unspecified; F32.9 Major depressive disorder, single episode, unspecified; F17.210 Nicotine dependence, cigarettes, uncomplicated; Z79.899 Other long term (current) drug therapy; Z88.5 Allergy status to narcotic agent; Z91.048 Other nonmedicinal substance allergy status; Z98.890 Other specified postprocedural states; Z82.49 Family history of ischemic heart disease and other diseases of the circulatory system; Z80.9 Family history of malignant neoplasm, unspecified
CPT/HCPCS: 81025; 88305; 58671; 57135; J2250; J1100; J2710; J2405; J2001; J3010; J1885; J0330; J2704; J1170